=== PATIENT | female | born 1945 | race Caucasian/White ===

== ENCOUNTER → 2016-10-21 | Outpatient (CLI) | payer MEDICARE, MEDICAID ==
[~2016-10-21] MED LIST: AMITRIPTYLINE25 MG PO; ASPIRIN 81MG TA81 MG PO; BENICAR HCT 12.1 TAB PO; CLOPIDOGREL75 M2 PO; CRESTOR10 MG PO; DIOVAN160 MG PO; FERROUS SULFAT325 M2 PO; GABAPENTIN 600600 MG PO; INDOMETHACIN 2525 MG PO; LASIX20 MG PO; LEVAQUIN250 M1 PO; LEVAQUIN500 MG PO; LISINOPRIL5 MG PO; LORTAB 5/3251 TAB PO; PREDNISONE5 MG PO; PRILOSEC20 M1 PO; ULTRAM50 MG PO
--- NOTE | 2016-10-21 12:41 | RADIOLOGY REPORT PS360 ---
KNEE-3 VIEWS-RT HISTORY: RIGHT KNEE PAIN COMPARISON: None FINDINGS: There are moderate osteoarthritic changes of the medial compartment and mild osteoarthritic change of the patellofemoral joint. No fracture or dislocation. No lytic or blastic change or obvious knee joint effusion. IMPRESSION: Osteoarthritis
== END ==
LOC: RAD 12:13
DX: M25.561 Pain in right knee (principal)

== ENCOUNTER 2016-11-10 07:46 | Inpatient (IN) | payer MEDICARE, MEDICAID ==
[~2016-11-10] VITALS: Ht 167.6 cm; Wt 75.0 kg
[~2016-11-10 07:46] MED LIST changes: -FERROUS SULFAT325 M2 PO; -LEVAQUIN250 M1 PO; -PREDNISONE5 MG PO
[2016-11-10 07:53] VITALS: BP 148/80
--- NOTE | 2016-11-10 08:03 | Emergency Room Report ---
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 Clinical Suspician of Infection? Mental Status: Sepsis Risk: Have you (or family members/close friends) recently traveled outside the [place]? If Yes, where/when: Have you had exposure to infectious disease within the past month? TB? Other? Specify: Source patient, RN notes reviewed Exam Limitations no limitations Comment Pt comes to the ED with complaints of SOA and productive cough for the past couple of weeks. Green sputum and achy but no vomiting or diarrhea. ? fever but none at this time. she is not a smoker. Feels achy all over and worse if she tries to move Cardiac Chest Pain Chest pain indicative of cardiac No ALLERGIES Coded Allergies: amantadine (I-HIVES 06/15/16) baclofen (W-TDSVTP-SKSH/THROAT 06/15/16) carvedilol (COUGH 06/15/16) promethazine (I-HIVES 06/15/16) rosuvastatin (I-ITCHING 06/15/16) simvastatin (M-WNIZZJ-FJIF/THROAT 06/15/16) Home Medications Active Scripts Valsartan (Diovan 160MG) 160 MG PO DAILY #30 TAB Prov: 06/30/14 HYDROCODONE/ACETAMINOPHEN (Lortab 5-325 MG Tablet) 1 TAB PO Q6HP PRN PAIN #10 TAB Prov: 08/03/14 Reported Medications Gabapentin (Neurontin 300MG) 300 MG PO BID ASPIRIN (Aspirin) 81 MG PO DAILY Tramadol Hcl (Ultram 50MG) 50 MG PO DAILY AMITRIPTYLINE HCL (Amitriptyline HCl) 50 MG PO QHS Lisinopril 5 MG PO DAILY #30 CLOPIDOGREL BISULFATE (Clopidogrel) 75 MG PO DAILY #30 History Medical History General CAD? No Angina: No [place]: No Hypertension? Yes Hyperlipidemia? No CHF? No DVT? No PE? No COPD? No Asthma? Yes Anemia? No GERD? No Gastric ulcers? No GI Bleed? No Hernia? No Thyroid Problems? No Hypothyroidism? No CVA? Yes Seizures? Yes Diabetes? No Insulin Dependent: No Insulin Pump: No Home FSBS? No Renal Insuffiency? No End Stage Renal Disease? No UTI? No Stones? No BPH? No GB Disease: Yes Nephritic Syndrome? No Asplenia? No Hepatitis? No Sickle Cell Disease? No Arthritis? Yes Migraines? No Cataracts? No Glaucoma? No MRSA? No HIV? No TB? No Anxiety? No Cancer? No More? No Immunization Hx DT/Tetanus 1-4 YRS Flu [id number] Flu Season Pneumonia Received In Past Surgical Hx Previous Surgery?Y LOLITA,BSO BLADDER TACH CVA (2006) CYCTOCELE, ENTEROCELE KNEE SURGERY COLONOSCOPY GALLBLADDER [id number] BACK SURGERY Family History Family Hx Diabetes No CAD Yes Hypertension Yes Hyperlipidemia No Cancer Yes TB No Social History Alcohol Alcohol: No Review of Systems All Other Systems Reviewed and Negative Constitutional see HPI ENT see HPI. Respiratory see HPI Physical Exam Vital Signs Vital Signs Date Time Temp Pulse Resp B/P Pulse O2 O2 Flow FiO2 Ox Delivery Rate 11/10 0753 98.4 84 18 148/80 95 General Appearance no apparent distress, but looks a little pale and weak Ear, Nose, Throat hearing grossly normal, normal ENT inspection Respiratory Status No: respiratory distress. Lung Sounds bilateral: decreased breath sounds. 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 No Results/Orders Laboratory Tests 11/10/16 0810: Lactic Acid 0.9 11/10/16 0810: Sodium 141, Potassium 4.1, Chloride 109 H, Carbon Dioxide 26, BUN 11, Creatinine 1.1 H, Estimated Creat Clear 41 L, Estimated GFR (MDRD) 49 L, Glucose 112 H, Calcium 8.4 L, Total Bilirubin 0.4, AST 13 L, ALT 12, Alkaline Phosphatase 86, Total Protein 6.2 L, Albumin 2.9 L, Globulin 3.3 H, Albumin/ Globulin Ratio 0.9 L, WBC 3.3 L, RBC 3.78 L, Hgb 9.9 L, Hct 31.1 L, MCV 82.5, RDW 13.5, Plt Count 143, MPV 11.4 H, Gran % 38.6, Gran # 1.3 L, Lymphocytes % 43.0, Monocytes % 7.9, Eosinophils % 9.9, Basophils % 0.6, Lymphocytes # 1.4, Monocytes # 0.3, Eosinophils # 0.3, Basophils # 0.0, PUBS MCHC 31.7 L, MCH 26.2 L, Influenza Type A Ag NOT DETECTED, Influenza Type B Ag NOT DETECTED Current Medication Orders Sig/Son Start time Last Medication Dose Route Stop Time Status Admin Levofloxacin/Dextrose 150 ML ONCE ONE 11/10 0900 CKDr IV 11/10 1029 Sodium Chloride 1,000 ML .Q1H1M 11/10 0900 AC IV 11/10 1000 Sodium Chloride 10 ML PRN PRN 11/10 0900 AC IV 11/11 0846 Sodium Chloride 1,000 ML .Q6H40M 11/10 0900 AC 11/10 IV 11/10 2046 0849 Sodium Chloride 10 ML PRN PRN 11/10 0900 AC IV 11/11 0846 Sodium Chloride 1,000 ML .STK-MED ONE 11/10 0846 DC IV Sodium Chloride 10 ML PRN PRN 11/10 0800 AC IV 11/11 0758 Orders Procedure Date/time Status UPPER RESPIRATORY PANEL, PCR 11/10 0902 Active CULTURE, BLOOD 11/10 0815 Active CULTURE, BLOOD 11/10 0810 Active LACTIC ACID 11/10 0810 Complete CHEST(2 VIEWS-NOT PORTABLE) 11/10 0759 Active IV SALINE LOCK 11/10 0759 Active INFLUENZA A&B ANTIGENS 11/10 0759 Complete CBC WITH AUTO DIFF 11/10 0759 Complete CHEM 12 PROFILE 11/10 0759 Complete XRAY/CT/US XRAY/CT/US XRAY chest XR interpretation by reviewed by me Xray Results lll INFILTRATE Departure Departure Time of Disposition 902 Disposition Still a Patient Clinical Impression Primary Impression: LLL pneumonia Qualifiers: Pneumonia type: due to unspecified organism Qualified Code: J18.9 - Pneumonia, unspecified organism Secondary Impressions: Viral syndrome Condition STABLE Referrals Jhonny Solano MD Additional Instructions OBS to Dr. Solano....get Upper Respiratory panel and start on Levaquin and nebs. Discharge Counseling Counseled pt/family regarding diagnosis, test results, follow up needs ED Critical Care Critical Care No If Critical Care minutes are documented, the time involved in the performance of seperately reportable procedures was not counted toward critical care time documented. I directly delivered medical care to this critically ill and/or injured patient. Timely evaluation and treatment was necessary to address the significant organ system(s) dysfunction present in this patient. at 0906
--- NOTE | 2016-11-10 08:03 | Emergency Room Report ---
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 Clinical Suspician of Infection? Mental Status: Sepsis Risk: Have you (or family members/close friends) recently traveled outside the [place]? If Yes, where/when: Have you had exposure to infectious disease within the past month? TB? Other? Specify: Source patient, RN notes reviewed Exam Limitations no limitations Comment Pt comes to the ED with complaints of SOA and productive cough for the past couple of weeks. Green sputum and achy but no vomiting or diarrhea. ? fever but none at this time. she is not a smoker. Feels achy all over and worse if she tries to move Cardiac Chest Pain Chest pain indicative of cardiac No ALLERGIES Coded Allergies: amantadine (I-HIVES 06/15/16) baclofen (J-[id number]-AIIH/THROAT 06/15/16) carvedilol (COUGH 06/15/16) promethazine (I-HIVES 06/15/16) rosuvastatin (I-ITCHING 06/15/16) simvastatin (L-XTCHRJ-PSCG/THROAT 06/15/16) Home Medications Active Scripts Valsartan (Diovan 160MG) 160 MG PO DAILY #30 TAB Prov: 06/30/14 HYDROCODONE/ACETAMINOPHEN (Lortab 5-325 MG Tablet) 1 TAB PO Q6HP PRN PAIN #10 TAB Prov: 08/03/14 Reported Medications Gabapentin (Neurontin 300MG) 300 MG PO BID ASPIRIN (Aspirin) 81 MG PO DAILY Tramadol Hcl (Ultram 50MG) 50 MG PO DAILY AMITRIPTYLINE HCL (Amitriptyline HCl) 50 MG PO QHS Lisinopril 5 MG PO DAILY #30 CLOPIDOGREL BISULFATE (Clopidogrel) 75 MG PO DAILY #30 History Medical History General CAD? No Angina: No [place]: No Hypertension? Yes Hyperlipidemia? No CHF? No DVT? No PE? No COPD? No Asthma? Yes Anemia? No GERD? No Gastric ulcers? No GI Bleed? No Hernia? No Thyroid Problems? No Hypothyroidism? No CVA? Yes Seizures? Yes Diabetes? No Insulin Dependent: No Insulin Pump: No Home FSBS? No Renal Insuffiency? No End Stage Renal Disease? No UTI? No Stones? No BPH? No GB Disease: Yes Nephritic Syndrome? No Asplenia? No Hepatitis? No Sickle Cell Disease? No Arthritis? Yes Migraines? No Cataracts? No Glaucoma? No MRSA? No HIV? No TB? No Anxiety? No Cancer? No More? No Immunization Hx DT/Tetanus 1-4 YRS Flu [id number] Flu Season Pneumonia Received In Past Surgical Hx Previous Surgery?Y LOLITA,BSO BLADDER TACH CVA (2006) CYCTOCELE, ENTEROCELE KNEE SURGERY COLONOSCOPY GALLBLADDER [id number] BACK SURGERY Family History Family Hx Diabetes No CAD Yes Hypertension Yes Hyperlipidemia No Cancer Yes TB No Social History Alcohol Alcohol: No Review of Systems All Other Systems Reviewed and Negative Constitutional see HPI ENT see HPI. Respiratory see HPI Physical Exam Vital Signs Vital Signs Date Time Temp Pulse Resp B/P Pulse O2 O2 Flow FiO2 Ox Delivery Rate 11/10 0753 98.4 84 18 148/80 95 General Appearance no apparent distress, but looks a little pale and weak Ear, Nose, Throat hearing grossly normal, normal ENT inspection Respiratory Status No: respiratory distress. Lung Sounds bilateral: decreased breath sounds. 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 No Results/Orders Laboratory Tests 11/10/16 0810: Lactic Acid 0.9 11/10/16 0810: Sodium 141, Potassium 4.1, Chloride 109 H, Carbon Dioxide 26, BUN 11, Creatinine 1.1 H, Estimated Creat Clear 41 L, Estimated GFR (MDRD) 49 L, Glucose 112 H, Calcium 8.4 L, Total Bilirubin 0.4, AST 13 L, ALT 12, Alkaline Phosphatase 86, Total Protein 6.2 L, Albumin 2.9 L, Globulin 3.3 H, Albumin/ Globulin Ratio 0.9 L, WBC 3.3 L, RBC 3.78 L, Hgb 9.9 L, Hct 31.1 L, MCV 82.5, RDW 13.5, Plt Count 143, MPV 11.4 H, Gran % 38.6, Gran # 1.3 L, Lymphocytes % 43.0, Monocytes % 7.9, Eosinophils % 9.9, Basophils % 0.6, Lymphocytes # 1.4, Monocytes # 0.3, Eosinophils # 0.3, Basophils # 0.0, PUBS MCHC 31.7 L, MCH 26.2 L, Influenza Type A Ag NOT DETECTED, Influenza Type B Ag NOT DETECTED Current Medication Orders Sig/Son Start time Last Medication Dose Route Stop Time Status Admin Levofloxacin/Dextrose 150 ML ONCE ONE 11/10 0900 CKDr IV 11/10 1029 Sodium Chloride 1,000 ML .Q1H1M 11/10 0900 AC IV 11/10 1000 Sodium Chloride 10 ML PRN PRN 11/10 0900 AC IV 11/11 0846 Sodium Chloride 1,000 ML .Q6H40M 11/10 0900 AC 11/10 IV 11/10 2046 0849 Sodium Chloride 10 ML PRN PRN 11/10 0900 AC IV 11/11 0846 Sodium Chloride 1,000 ML .STK-MED ONE 11/10 0846 DC IV Sodium Chloride 10 ML PRN PRN 11/10 0800 AC IV 11/11 0758 Orders Procedure Date/time Status UPPER RESPIRATORY PANEL, PCR 11/10 0902 Active CULTURE, BLOOD 11/10 0815 Active CULTURE, BLOOD 11/10 0810 Active LACTIC ACID 11/10 0810 Complete CHEST(2 VIEWS-NOT PORTABLE) 11/10 0759 Active IV SALINE LOCK 11/10 0759 Active INFLUENZA A&B ANTIGENS 11/10 0759 Complete CBC WITH AUTO DIFF 11/10 0759 Complete CHEM 12 PROFILE 11/10 0759 Complete XRAY/CT/US XRAY/CT/US XRAY chest XR interpretation by reviewed by me Xray Results lll INFILTRATE Departure Departure Time of Disposition 902 Disposition Still a Patient Clinical Impression Primary Impression: LLL pneumonia Qualifiers: Pneumonia type: due to unspecified organism Qualified Code: J18.9 - Pneumonia, unspecified organism Secondary Impressions: Viral syndrome Condition STABLE Referrals Jhonny Solano MD Additional Instructions OBS to Dr. Solano....get Upper Respiratory panel and start on Levaquin and nebs. Discharge Counseling Counseled pt/family regarding diagnosis, test results, follow up needs ED Critical Care Critical Care No If Critical Care minutes are documented, the time involved in the performance of seperately reportable procedures was not counted toward critical care time documented. I directly delivered medical care to this critically ill and/or injured patient. Timely evaluation and treatment was necessary to address the significant organ system(s) dysfunction present in this patient. at 0906
[2016-11-10 08:35] LABS: HEMOGLOBIN 9.9 g/dL (12.2-16.2); LYMPH # 1.4 K/mm3 (0.7-4.5)
[2016-11-10 09:37] LABS: CORONAVIRUS 229E NOT DETECTED (NOT DETECTE); CORONAVIRUS HKU 1 NOT DETECTED (NOT DETECTE); CORONAVIRUS NL63 NOT DETECTED (NOT DETECTE); CORONAVIRUS OC43 NOT DETECTED (NOT DETECTE); RHINOVIRUS/ENTEROVIRUS NOT DETECTED (NOT DETECTE)
--- NOTE | 2016-11-10 10:49 | RADIOLOGY REPORT PS360 ---
CHEST(2 VIEWS-NOT PORTABLE) HISTORY: Shortness of air SOA ORDERING PHYSICIAN: Alyssa Nelson MD PATIENT AGE: 71 years COMPARISON: 05/17/2015 FINDINGS: Borderline cardiomegaly without failure. Hiatal hernia. Calcified node in the right paratracheal region. Mild atelectatic change left lung base. No lobar consolidation or collapse.. The lungs are clear without infiltrates, suspicious nodules, or pleural effusions. No acute bony abnormalities. IMPRESSION: Hiatal hernia with mild cardiomegaly and minimal left basilar atelectasis
[2016-11-10 11:27] VITALS: BP 121/80
[2016-11-10 12:05] VITALS: BP 121/92
--- NOTE | 2016-11-10 16:39 | HISTORY AND PHYSICAL REPORT ---
History and Physical ([facility]) Date of admission: 11/10/16 Chief complaint: Weakness, cough History: History of Present Illness: Ms. Cordova is a 71yo patient of Jodi Hernandes who presented to the ER after 4 weeks of a cough with productive green sputum. She has been getting progressively more SOA and has been achy with no vomiting or diarrhea. She thinks she has been running a fever. She was evaluated in the ER and found to have a pneumonia. She was admitted for further evaluation and treatment. Past Medical History: Medical History: CAD? No Angina: No [place]: No Hypertension? Yes Hyperlipidemia? No CHF? No DVT? No PE? No COPD? No Asthma? Yes Anemia? No GERD? No Gastric ulcers? No GI Bleed? No Hernia? No Thyroid Problems? No Hypothyroidism? No CVA? Yes (x4) Seizures? Yes Diabetes? No Insulin Dependent: No Insulin Pump: No Home FSBS? No Renal Insuffiency? No UTI? No Stones? No BPH? No GB Disease: Yes Nephritic Syndrome? No Asplenia? No Hepatitis? No Sickle Cell Disease? No Arthritis? Yes Migraines? No Cataracts? No Glaucoma? No MRSA? No HIV? No TB? No Anxiety? No Cancer? No More? No Surgical history: Previous Surgery?Y LOLITA,BSO BLADDER TACH CVA (2006) CYCTOCELE, ENTEROCELE KNEE SURGERY COLONOSCOPY GALLBLADDER [id number] BACK SURGERY Medications: Active Scripts Valsartan (Diovan 160MG) 160 MG PO DAILY #30 TAB Prov: 06/30/14 HYDROCODONE/ACETAMINOPHEN (Lortab 5-325 MG Tablet) 1 TAB PO Q6HP PRN PAIN #10 TAB Prov: 08/03/14 Reported Medications Gabapentin (Neurontin 300MG) 300 MG PO BID ASPIRIN (Aspirin) 81 MG PO DAILY Tramadol Hcl (Ultram 50MG) 50 MG PO DAILY AMITRIPTYLINE HCL (Amitriptyline HCl) 50 MG PO QHS Lisinopril 5 MG PO DAILY #30 CLOPIDOGREL BISULFATE (Clopidogrel) 75 MG PO DAILY #30 Allergies: Coded Allergies: amantadine (I-HIVES 06/15/16) baclofen (W-HHEJWN-ZRKK/THROAT 06/15/16) carvedilol (COUGH 06/15/16) promethazine (I-HIVES 06/15/16) rosuvastatin (I-ITCHING 06/15/16) simvastatin (W-DKZAFZ-RXYE/THROAT 06/15/16) Family History: Family history: Postive for: CAD, HTN, cancer (colon). Social History: Smoking Hx Tobacco: No Smoker: Never Smoker Type: N/A Packs/day: N/A Are you exposed to second hand No Alcohol: Alcohol: No Hx of Drug Use: Drug Use? No Review of Systems: Constitutional Positive for: chills, fatigue, lethargy, malaise, weak. ENT No: nasal congestion, sore throat. Cardiovascular Positive for: chest pain. No: edema, palpitations. Respiratory Positive for: shortness of air, productive cough (sputum), wheezing. GI No: abdominal pain, diarrhea, nausea, vomitting. (female) No: frequency, hematuria. Neurological Positive for: dizziness, headache, weakness. No: syncope. Musculoskeletal Positive for: myalgias. No: extremity pain, joint pain. Physical Exam: Vital signs: 1ST Vital Signs Result Date Time Pulse Ox 95 11/10 0753 B/P 148/80 11/10 0753 Temp 98.4 11/10 0753 Pulse 84 11/10 0753 Resp 18 11/10 0753 O2 Delivery ROOM AIR 11/10 1127 O2 Flow Rate 2 11/10 1200 Exam: General appearance: alert, awake, Does not appear to feel well Eyes: EOM's w/normal ROM, PERRLA ENT: mucous membranes moist, nose normal, pharynx normal, tympanic membranes normal Neck: non-tender, full range of motion, supple Cardiovascular: regular rate & rhythm Respiratory: rales left base ABD: non-distended, normal bowel sounds, no rebound, soft, no tenderness, no guarding Extremities: trace pretibial edema bilaterally Musculoskeletal: equal muscle strength, motor intact, sensation intact Skin: pale Neuro: normal mood/affect, oriented, speech clear Lab data: Labs: Laboratory Tests 11/10/16 0930: Chlamy pneum (TEM-PCR) NOT DETECTED, Adenovirus (PCR) NOT DETECTED, B. pertussis DNA (PCR) NOT DETECTED, Coronavirus OC43 (PCR) NOT DETECTED, Coronavirus HKU1 ( PCR) NOT DETECTED, Coronavirus 229E (PCR) NOT DETECTED, Coronavirus NL63 (PCR) NOT DETECTED, Human Metapneumovirus NOT DETECTED, Influenza A (H1) PCR NOT DETECTED, Influ A (H1N1/09) PCR NOT DETECTED, Influenza A (H3) PCR NOT DETECTED, Influenza Type A (PCR) NOT DETECTED, Influenza Type B (PCR) NOT DETECTED, M. pneumoniae (PCR) NOT DETECTED, Parainfluenza 1 (PCR) NOT DETECTED, Parainfluenza 2 (PCR) NOT DETECTED, Parainfluenza 3 (PCR) NOT DETECTED, Parainfluenza 4 (PCR) NOT DETECTED, RSV (PCR) NOT DETECTED, Entero/Rhino (PCR) NOT DETECTED 11/10/16 0810: Lactic Acid 0.9, Mycoplasma pneumon IgM NON-REACTIVE 11/10/16 0810: Sodium 141, Potassium 4.1, Chloride 109 H, Carbon Dioxide 26, BUN 11, Creatinine 1.1 H, Estimated Creat Clear 41 L, Estimated GFR (MDRD) 49 L, Glucose 112 H, Calcium 8.4 L, Total Bilirubin 0.4, AST 13 L, ALT 12, Alkaline Phosphatase 86, Total Protein 6.2 L, Albumin 2.9 L, Globulin 3.3 H, Albumin/ Globulin Ratio 0.9 L, WBC 3.3 L, RBC 3.78 L, Hgb 9.9 L, Hct 31.1 L, MCV 82.5, RDW 13.5, Plt Count 143, MPV 11.4 H, Gran % 38.6, Gran # 1.3 L, Lymphocytes % 43.0, Monocytes % 7.9, Eosinophils % 9.9, Basophils % 0.6, Lymphocytes # 1.4, Monocytes # 0.3, Eosinophils # 0.3, Basophils # 0.0, PUBS MCHC 31.7 L, MCH 26.2 L, Influenza Type A Ag NOT DETECTED, Influenza Type B Ag NOT DETECTED Microbiology 11/10 08 BLOOD: Anaerobic Blood Culture - RECD 11/10 08 BLOOD: Aerobic Blood Culture - RECD 11/10 08 BLOOD: Anaerobic Blood Culture - RECD 11/10 809 BLOOD: Aerobic Blood Culture - RECD 11/10 UNK BLOOD: Anaerobic Blood Culture - CAN Cancelled: @DUPLICATE 11/10 UNK BLOOD: Aerobic Blood Culture - CAN Cancelled: @DUPLICATE 11/10 UNK BLOOD: Anaerobic Blood Culture - CAN Cancelled: @DUPLICATE 11/10 UNK BLOOD: Aerobic Blood Culture - CAN Cancelled: @DUPLICATE Radiology results: Results: CXR - Hiatal hernia with mild cardiomegaly and minimal left basilar atelectasis Diagnosis(es): 1. LLL pneumonia Status: Acute 2. Hypertension Status: Chronic 3. Anemia Plan: Pt has been started on levaquin and most of her home medications. Her respiratory panel was negative. Will await sputum culture. (Lennie Sheikh) Diagnosis(es): 1. LLL pneumonia Status: Acute 2. Hypertension Status: Chronic 3. Anemia 4. History of cerebrovascular disease 5. Chronic low back pain Plan: Pt seen and examined. "I just don't feel good". No specific complaints except weakness and BENNETT. No chest pain. Cough is nonproductive. Has not been eating or drinking well for several days due to not having an appetite. Not sure why she takes Plavix. States Jodi Hernandes started it last week because "she thought I was having a stroke". Shegives a hx of "mini-strokes". Reviewed labs and xray. CBC appears to have a viral pattern but PCR panel is negative. CXR interpreted by radiologist as LLL atelectasis. Will plan to repeat CXR after hydration. Continue IV Levaquin pending sputum culture (Jhonny Solano MD) at 1642 at 1837
[2016-11-10 16:48] VITALS: BP 121/86
[2016-11-10 20:03] VITALS: BP 147/84
[2016-11-11] VITALS (7 sets, daily range): BP systolic 141–160; BP diastolic 67–88
[2016-11-11 07:59] LABS: LYMPH # 0.4 K/mm3 (0.7-4.5); LYMPH % 22.4 % (10-50.0)
[2016-11-11 08:00] LABS: HEMOGLOBIN 8.8 g/dL (12.2-16.2)
--- NOTE | 2016-11-11 08:43 | ACUTE CARE PROGRESS NOTE (QUA) ---
Progress Notes Subjective Date 11/11/16 Time 0841 Note Rested fairly well. Feels a little better this AM. Still with cough. States Duonebs make her "climb the ha". Tells me she had problems with anemia when she was younger but not aware of any recent problems. Appetite a little better. Objective Findings Laboratory Tests 11/11/16 0550: Sodium 143, Potassium 4.0, Chloride 112 H, Carbon Dioxide 22, BUN 11, Creatinine 1.2 H, Estimated Creat Clear 50, Estimated GFR (MDRD) 44 L, Glucose 204 H, Calcium 8.4 L, Ferritin 12, WBC 1.6 *L, RBC 3.43 L, Hgb 8.8 L, Hct 27.0 L, MCV 78.8 L, RDW 14.5, Plt Count 77 L, Gran % 75.6, Gran # 1.2 L, Total Counted 100, Lymphocytes % 22.4, Monocytes % 2.0, Neutrophils 87 H, Lymphocytes (Manual) 11, Lymphocytes # 0.4 L, Monocytes (Manual) 1 L, Monocytes # 0 L, Eosinophils # (Manual) 1, Platelet Estimate NORMAL, PUBS MCHC 33.0, MCH 25.9 L Last VS-Temp:97.9 B/P:146/67 Pulse:90 Resp:22 SaO2:95 ROOM AIR Last weight lbs:165 oz:6 K.013 Method:Bed Scales Exam General appearance: alert, no acute distress Eyes: anicteric ENT: mucous membranes moist Cardiovascular: regular rate & rhythm Respiratory: coarse BS, no rales or wheezes ABD: non-distended, soft, no tenderness Extremities: no peripheral edema Skin: pale Assessment/Plan Problem List 1. LLL pneumonia Status: Acute 2. Pancytopenia 3. Hypertension Status: Chronic 4. History of cerebrovascular disease 5. Chronic low back pain Plan: Feels a little better. Now showing a pancytopenia on her CBC. Could be related to viral syndrome. Anemia w/u pending. Will check peripheral smear. Continue IV antibiotics pending culture. This inpt stay is expected to cross 2 MNs from start of care Yes at 1127
[2016-11-11 10:17] LABS: NEUTROPHILS 87 % (42-76)
[2016-11-12] VITALS (7 sets, daily range): BP systolic 143–176; BP diastolic 75–94
[2016-11-12 08:34] LABS: HEMOGLOBIN 8.4 g/dL (12.2-16.2)
[2016-11-12 08:36] LABS: LYMPH % 6.9 % (10-50.0)
[2016-11-12 08:37] LABS: LYMPH # 0.6 K/mm3 (0.7-4.5)
--- NOTE | 2016-11-12 08:51 | ACUTE CARE PROGRESS NOTE (QUA) ---
Progress Notes Subjective Date 11/12/16 Time 0842 Note Sleepy this AM. States she did not sleep well last night. Still with cough - dry. No abdominal pain. Had "good BM" yesterday. Objective Findings Laboratory Tests 11/12/16 0815: WBC 8.5, RBC 3.33 L, Hgb 8.4 L, Hct 26.3 L, MCV 79.1 L, RDW 15.5, Plt Count 119 L, Gran % 91.3 H, Gran # 7.8, Lymphocytes % 6.9 L, Monocytes % 1.8, Lymphocytes # 0.6 L, Monocytes # 0.2, PUBS MCHC 31.9, MCH 25.2 L Last VS-Temp:97.9 B/P:143/75 Pulse:90 Resp:20 SaO2:95 ROOM AIR Last weight lbs:165 oz:6 K.013 Method:Bed Scales Exam General appearance: drowsy but oriented ENT: mucous membranes moist Cardiovascular: regular rate & rhythm Respiratory: clear to auscultation ABD: non-distended, soft, mild epigastric tenderness Skin: dry, warm, pale Reviewed: medications, vital signs, lab results, nursing notes Assessment/Plan Problem List 1. LLL pneumonia Status: Acute 2. Hypertension Status: Chronic 3. History of cerebrovascular disease 4. Chronic low back pain 5. Microcytic anemia Patient condition Stable Plan: WBC and platelet counts are normal today. Showing microcytic anemia. Iron studies pending. Stool for occult blood pending. Repeat CXR from yesterday pending. Will conitnue per orders. Encourage increased activity. This inpt stay is expected to cross 2 MNs from start of care Yes at 0850
[2016-11-12 10:52] LABS: NEUTROPHILS 93 % (42-76)
[2016-11-13] VITALS (8 sets, daily range): BP systolic 114–169; BP diastolic 70–104
[2016-11-13 06:42] LABS: HEMOGLOBIN 9.2 g/dL (12.2-16.2); LYMPH # 0.6 K/mm3 (0.7-4.5); LYMPH % 6.1 % (10-50.0)
--- NOTE | 2016-11-13 08:32 | ACUTE CARE PROGRESS NOTE (QUA) ---
Progress Notes Subjective Date 11/13/16 Time 0826 Note Rested better last night. Cough has improved. Sats are normal on RA. Objective Findings Laboratory Tests 11/13/16 0635: Hemoglobin A1c 6.1 11/13/16 0635: Sodium 146 H, Potassium 4.1, Chloride 114 H, Carbon Dioxide 25, BUN 20 H, Creatinine 0.9, Estimated Creat Clear 67, Estimated GFR (MDRD) 62, Glucose 154 H, Calcium 8.4 L, WBC 9.2, RBC 3.64 L, Hgb 9.2 L, Hct 30.0 L, MCV 82.6, RDW 14.2, Plt Count 152, MPV 12.6 H, Gran % 91.2 H, Gran # 8.4 H, Lymphocytes % 6.1 L, Monocytes % 2.3, Eosinophils % 0.4, Basophils % 0.0 L, Lymphocytes # 0.6 L, Monocytes # 0.2, Eosinophils # 0.0, Basophils # 0.0, PUBS MCHC 30.5 L, MCH 25.2 L Last VS-Temp:98.6 B/P:140/87 Pulse:88 Resp:20 SaO2:96 ROOM AIR Last weight lbs:165 oz:6 K.014 Method:Bed Scales Exam General appearance: alert, awake, no acute distress Cardiovascular: regular rate & rhythm Respiratory: few coarse rales ABD: non-distended, normal bowel sounds, soft, no tenderness Extremities: no peripheral edema Skin: pale Reviewed: medications, vital signs, lab results, nursing notes Assessment/Plan Problem List 1. LLL pneumonia Status: Acute 2. Hypertension Status: Chronic 3. History of cerebrovascular disease 4. Chronic low back pain 5. Microcytic anemia Plan: She looks and feels better. H&H improved. CXR from 2 days ago still pending. Awaiting anemia studies. This inpt stay is expected to cross 2 MNs from start of care Yes at 0831
--- NOTE | 2016-11-13 09:12 | RADIOLOGY REPORT PS360 ---
CHEST(2 VIEWS-NOT PORTABLE) ORDERING PHYSICIAN : Jhonny Solano MD PATIENT AGE: 71 years GENDER: Female INDICATION: F/u pneumonia TECHNIQUE: PA and lateral chest 11/10/2016 COMPARISON: chest 11/10/2016 & 11/10/14 CXR,. FINDINGS Prominent hiatal hernia is again seen. Is larger today than on previous 11/10/14 CXR, and 11/10/2016 Today hiatal hernia measures up to 8 cm diameter at the lower chest behind the heart on today's PA image. Significant larger on the lateral view is well with adjacent atelectasis most pronounced at the right lower lobe. . Mild basilar atelectasis suggested,. Linear atelectasis most notable left base on frontal projection... Difficult to totally exclude early infiltrate particularly towards towards medial right lung base . Mild cardiomegaly with CT ratio . Appears to be slight additional vascular prominence versus 2014. Question mild vascular congestion. Small pleural effusion on right & possibly left Blunting posterior sulcus now evident... Most evident towards right lung base. Large calcified azygous node stable 2.5 cm length. Chest wall and T-spine stable. ----IMPRESSION: Hiatal hernia more prominent today measuring 8 cm & bulging into medial right lung base. Bibasilar atelectasis. Difficult to exclude subtle early infiltrate medial right base.. Suggestion small pleural effusion most likely on right. Blunting, & meniscus at posterior sulcus Borderline/Mild Cardiomegaly. Question mild vascular congestion versus old studies
[2016-11-14 03:41] VITALS: BP 126/83
[2016-11-14 07:36] VITALS: BP 154/78
--- NOTE | 2016-11-14 07:58 | ACUTE CARE PROGRESS NOTE (QUA) ---
Progress Notes Subjective Date 11/14/16 Time 0752 Note Feels so much beter; ambulating without problems; senies CP and SOB; eating well ; loves breakfast; voiding QS and bowels are moving well; ready to go home. Objective Findings Vital Signs Date Time Temp Pulse Resp B/P Pulse O2 O2 Flow FiO2 Ox Delivery Rate 11/14 0736 98.7 88 18 154/78 98 ROOM AIR 11/14 0547 1 11/14 0547 95 ROOM AIR 11/14 0341 97.2 68 18 126/83 93 ROOM AIR 11/13 2342 97.3 67 20 147/85 95 ROOM AIR 11/13 202 98.4 93 16 160/90 96 11/13 1953 160/90 11/13 1933 98.4 93 16 154/104 96 ROOM AIR 11/13 1926 97 ROOM AIR 11/13 1820 97 ROOM AIR 11/13 1622 97.5 93 20 169/103 98 ROOM AIR 11/13 1143 98.6 95 20 114/70 97 ROOM AIR 11/13 0832 98.6 88 20 140/87 96 Current Medications Prednisone 20 MG BID PO Guaifenesin/Dextromethorphan 0 .STK-MED ONE .ROUTE (DC) Levofloxacin/Dextrose 150 ML Q48H IV Levalbuterol HCl 0.63 MG TIDRT INH Amitriptyline HCl 50 MG QHS PO Methylprednisolone Sodium Succinate 60 MG Q8 IV (DC) Tramadol HCl 50 MG Q6HP PRN PO Sodium Chloride 10 ML PRN PRN IV Acetaminophen 650 MG Q4HP PRN PO Guaifenesin/Dextromethorphan 10 ML Q4HP PRN PO Influenza Virus Vaccine Quadrival 0.5 ML PRN PRN IM Nicotine 21 MG DAILYP PRN TD Sodium Chloride 1,000 ML .Q25H IV Aspirin 81 MG DAILY PO Clopidogrel Bisulfate 75 MG DAILY PO Irbesartan 150 MG DAILY PO Lisinopril 5 MG DAILY PO Gabapentin 300 MG BID PO 11/13 1500 11/13 2300 11/14 0700 Intake Total 240 580 553 Output Total Balance 240 580 553 Intake, IV 340 313 Intake, Oral 240 240 240 Patient 165 lb Weight Last VS-Temp:98.7 B/P:154/78 Pulse:88 Resp:18 SaO2:98 ROOM AIR Last weight lbs:165 oz:7 K.041 Method:Bed Scales Exam General appearance: alert, active, no acute distress, well-developed, well- nourished, sitting on bedside and has completed breakfast Cardiovascular: regular rate & rhythm Respiratory: clear to auscultation (bilat anterior and posterior) Assessment/Plan Problem List 1. LLL pneumonia Status: Acute 2. Hypertension Status: Chronic 3. History of cerebrovascular disease 4. Chronic low back pain 5. Microcytic anemia Patient condition Improved Plan: discharge to home today, will follow anemia as an outpatient This inpt stay is expected to cross 2 MNs from start of care No (Awilda Gambino APRN) Subjective Date 11/14/16 Time 0858 Note Pt seen and examined. SHe looks and feels much better. Concur with plan for discharge. Will need f/u on her anemia with consideration for c-scope. Assessment/Plan Problem List 1. LLL pneumonia Status: Acute 2. Hypertension Status: Chronic 3. History of cerebrovascular disease 4. Chronic low back pain 5. Microcytic anemia (Jhonny Solano MD) at 0826 at 0900
[2016-11-14 08:42] LABS: HBsAg Screen Negative (Negative); Hep A Ab, IgM Negative (Negative); Hep B Core Ab, IgM Negative (Negative); Hep C Virus Ab <0.1 (0.0-0.9)
[2016-11-14 08:51] VITALS: BP 154/78
[2016-11-14] MEDS ORDERED: LEVAQUIN250 M1 PO (08:54)
[2016-11-14] MEDS ORDERED: PREDNISONE5 MG PO (08:54)
[2016-11-14] MEDS ORDERED: FERROUS SULFAT325 M2 PO (08:55)
[2016-11-14 10:15] VITALS: BP 154/78
[2016-11-14 18:39] LABS: Antinuclear Antibodies, IFA Negative (.)
[2016-11-15 04:36] LABS: Folate (Folic Acid) 18.2 ng/mL (>3.0)
[2016-11-15 16:34] LABS: Epstein-Barr DNA Quant, PCR Negative (Negative)
--- NOTE | 2016-11-16 13:10 | DISCHARGE SUMMARY STANDARD ---
Discharge Summary (FCA2) Date of admission: 11/10/16 Date of discharge: 11/14/16 Problem List: 1. LLL pneumonia 2. Hypertension 3. History of cerebrovascular disease 4. Chronic low back pain 5. Microcytic anemia History of present illness: Ms. Cordova is a 71yo patient of Jodi Hernandes who presented to the ER after 4 weeks of a cough with productive green sputum. She had been getting progressively more SOA and had been achy with no vomiting or diarrhea. She thought she had been running a fever. She was evaluated in the ER and found to have a pneumonia. She was admitted for further evaluation and treatment. Exam on admission: General appearance: alert, awake, Does not appear to feel well Eyes: EOM's w/normal ROM, PERRLA ENT: mucous membranes moist, nose normal, pharynx normal, tympanic membranes normal Neck: non-tender, full range of motion, supple Cardiovascular: regular rate & rhythm Respiratory: rales left base ABD: non-distended, normal bowel sounds, no rebound, soft, no tenderness, no guarding Extremities: trace pretibial edema bilaterally Musculoskeletal: equal muscle strength, motor intact, sensation intact Skin: pale Neuro: normal mood/affect, oriented, speech clear Hospital Course: She had a respiratory panel done which was negative. She was started on Levaquin and most of her home medications. By 11/11/16, she was showed a pancytopenia on her complete blood count. Dr. Solano felt this could be related to a viral syndrome. Her anemia workup was still pending. Her second chest x-ray showed a hiatal hernia with bibasilar atelectasis. It was difficult to exclude a subtle early infiltrate in the medial RIGHT base. The patient did improve throughout her stay. Her iron was found to be low. Dr. Solano felt she would need a further workup for her anemia upon discharge. By 11/14/16, she was feeling much better and was anxious to go home. She was stable to be discharged home on iron, prednisone, and Levaquin. She will follow-up with her primary care physician. Discharge medications: Stop taking the following medications: Valsartan (Diovan 160MG) 160 MG TABLET ORAL DAILY Qty = 30 Continue taking these medications: Gabapentin (Gabapentin 600MG) 600 MG TABLET 300 MILLIGRAM ORAL TWICE A DAY AMITRIPTYLINE HCL (Amitriptyline HCl) 25 MG TABLET 50 MILLIGRAM ORAL AT BEDTIME NIGHTLY Tramadol Hcl (Ultram 50MG) 50 MG TABLET 50 MILLIGRAM ORAL DAILY ASPIRIN (Aspirin) 81 MG TAB.CHEW 81 MILLIGRAM ORAL DAILY Lisinopril (Lisinopril) 5 MG TABLET 5 MILLIGRAM ORAL DAILY Qty = 30 CLOPIDOGREL BISULFATE (Clopidogrel) 75 MG TABLET 75 MILLIGRAM ORAL DAILY Qty = 30 Start taking the following new medications: Levofloxacin (Levaquin) 250 MG TABLET 250 MILLIGRAM ORAL DAILY Qty = 5 No Refills Prednisone (Prednisone) 5 MG TABLET 5 MILLIGRAM ORAL DAILY Qty = 10 No Refills Ferrous Sulfate (Ferrous Sulfate 325MG) 325 MG TABLET 325 MILLIGRAM ORAL DAILY Qty = 30 Refills = 2 Disposition: F/U with: Jhonny Solano MD Follow up: 7 DAYS Activity: Cont Current activity Diet: No Added Salt Discharge to: HOME Agency needed? N (Lennie Sheikh) Problem List: 1. LLL pneumonia 2. Hypertension 3. History of cerebrovascular disease 4. Chronic low back pain 5. Microcytic anemia Disposition: Concur with above. She has elected to follow up with me at [facility]. (Jhonny Solano MD) at 1310
== END 2016-11-14 10:15 | disposition home or self-care (01) | DRG 195 ==
LOC: ER 07:46 → 2ND 09:39 → ER 09:39 → 2ND 11:16
PROVIDERS: Family Medicine; General Practice
DX: J18.9 Pneumonia, unspecified organism (principal); I10 Essential (primary) hypertension; Z86.73 Personal history of transient ischemic attack (TIA), and cerebral infarction without residual deficits; M54.5 Low back pain; D50.9 Iron deficiency anemia, unspecified

== ENCOUNTER 2017-03-06 09:29 | Day surgery (SDC) | payer MEDICARE, MEDICAID ==
[~2017-03-06 09:29] MED LIST changes: +FERROUS SULFAT325 M2 PO; +LEVAQUIN250 M1 PO; +PREDNISONE5 MG PO
--- NOTE | 2017-03-06 10:39 | Operative Note ---
Endoscopy Report Date: 03/06/17 Preoperative diagnosis: Mucous in stool Procedure Type of procedure: Total colonoscopy to terminal ileum with polypectomy and random biopsies Indications: 72-year-old white female from [place]. Patient states that "I have drainage from my bowels". She describes symptoms consistent with mucousy discharge and drainage without bleeding. She previously had colonoscopy by Dr. Louis in 2013 which revealed some diverticulosis. Consent was obtained and patient was taken to same-day surgery endoscopy procedure room. She was positioned in a lateral decubitus position. Adequate intravenous sedation was achieved. Variable stiffness Olympus colonoscope was inserted via the anus. It was advanced to the cecum with some minor difficulty due to floppiness of the colon. Ileocecal valve and appendiceal orifice were clearly identified. Colonoscope was advanced briefly into the ileocecal valve which was grossly normal. There was a subtle diminutive polyp in the cecum removed in a piecemeal fashion using cold biopsy forceps. As the colonoscope was withdrawn random colon biopsies were obtained. Within the rectum retroflexion was performed which revealed some nonpathologic appearing internal hemorrhoids. Findings 1. Diverticulosis 2. Polyp Follow-Up Follow-Up: Follow-up on the results of the polyp and random colon biopsies. Overall no obvious colonoscopic evidence to explain her mucousy bowel movements. May be functional or dietary. at 1038
[2017-03-06 12:09] VITALS: BP 147/79
== END 2017-03-06 11:24 | disposition home or self-care (01) ==
LOC: SDC 09:29
PROVIDERS: Surgery
PROC: 0DBH8ZX Excision of Cecum, Via Natural or Artificial Opening Endoscopic, Diagnostic (ICD-10-PCS; 2017-03-06)
PROC: 0DBE8ZX Excision of Large Intestine, Via Natural or Artificial Opening Endoscopic, Diagnostic (ICD-10-PCS; principal; 2017-03-06 10:30)
DX: R15.1 Fecal smearing (principal); K57.30 Diverticulosis of large intestine without perforation or abscess without bleeding; D12.0 Benign neoplasm of cecum

== ENCOUNTER 2017-08-08 16:26 | Emergency (ER) | payer MEDICARE, MEDICAID ==
[~2017-08-08] VITALS: Ht 167.6 cm; Wt 73.5 kg
[~2017-08-08 16:26] MED LIST changes: +AMITRIPTYLINE 550 MG PO; +AVAPRO75 MG PO; +BYSTOLIC5 MG PO; +CEFUROXIME AXE500 MG PO; +COREG 6.25MG6.25 MG PO; +LASIX 20MG. TAB20 MG PO; +LEVOTHYROXIN0.025 M3 PO; +OMEPRAZOLE40 MG PO; +PREDNISONE 20MG20 MG PO
--- NOTE | 2017-08-08 16:37 | Emergency Room Report ---
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 N Clinical Suspician of Infection? N Mental Status: 1 - Regular (Normal Baseline) Sepsis Risk:Low Sepsis Risk Have you (or family members/close friends) recently traveled outside the [place]? N If Yes, where/when: Have you had exposure to infectious disease within the past month? N TB? Other? Specify: Dull substernal pain since last night, not exertional, worse when supine, reports hx CHF with a little edema but no kristi calf pain; no BENNETT, no palpitations, hasn't taken her aspirin for two days as ran out; does not take diuretics regularly. Pain constant and dull. No belching. Had Takasubo cardiomyopathy diagnosed on [facility] 04/19/17 Dr. Clark [facility]; Echo 06/07/17 diastolic dysfunction grade 1; EF 45 per cent. ALLERGIES Coded Allergies: amantadine (I-HIVES 06/15/16) baclofen (Q-[id number]-YMNY/THROAT 06/15/16) carvedilol (COUGH 06/15/16) promethazine (I-HIVES CAN TAKE SHOT NOT TABLET 03/02/17) rosuvastatin (I-ITCHING 06/15/16) simvastatin (M-ITMPOY-UIVK/THROAT 06/15/16) Home Medications Active Scripts Prednisone (Prednisone 20MG) 20 MG PO BID #10 TAB Prov: 04/23/17 Ferrous Sulfate (Ferrous Sulfate 325MG) 325 MG PO DAILY #30 TAB Ref 2 Prov: 11/14/16 Furosemide (Lasix 20MG) 20 MG PO DAILY #30 TAB Prov: 04/20/17 LEVOTHYROXINE SOD (Levothyroxine 0.025MG) 0.025 MG PO DAILY #30 TAB Ref 2 Prov: 04/20/17 Cefuroxime Axetil (Cefuroxime) 500 MG PO BID #10 TAB Prov: 04/20/17 IRBESARTAN (Irbesartan) 75 MG PO BID #60 TAB Ref 2 Prov: 04/20/17 Carvedilol (Coreg 6.25MG) 6.25 MG PO BID #60 TAB Ref 2 Prov: 04/20/17 Reported Medications Gabapentin (Gabapentin 600MG) 300 MG PO BID Tramadol Hcl (Ultram 50MG) 50 MG PO BID PRN PAIN Amitriptyline Hcl (Amitriptyline) 50 MG PO QHS #90 History Medical History General CAD? No Angina: No MN: No Hypertension? Yes Hyperlipidemia? No CHF? No DVT? No PE? No COPD? No Asthma? Yes Anemia? No GERD? No Gastric ulcers? No GI Bleed? No Hernia? No Thyroid Problems? No Hypothyroidism? Yes CVA? Yes Seizures? Yes Diabetes? No Insulin Dependent: No Insulin Pump: No Home FSBS? No Renal Insuffiency? No End Stage Renal Disease? No UTI? No Stones? No BPH? No GB Disease: Yes Nephritic Syndrome? No Asplenia? No Hepatitis? No Sickle Cell Disease? No Arthritis? Yes Migraines? No Cataracts? No Glaucoma? No MRSA? No HIV? No TB? No Anxiety? No Depression? No Cancer? No More? No Immunization Hx DT/Tetanus 1-4 YRS Flu 2015-FSN Pneumonia Received In Past Surgical Hx Previous Surgery?Y LOLITA,BSO BLADDER TACH CVA (2006) CYCTOCELE, ENTEROCELE KNEE SURGERY COLONOSCOPY GALLBLADDER [id number] BACK SURGERY Family History Family Hx Diabetes No CAD Yes Hypertension Yes Hyperlipidemia No Cancer Yes TB No Social History Smoking Hx Smoker: Never Smoker Tobacco: No Packs/day N/A Alcohol Alcohol: No Review of Systems All Other Systems Reviewed and Negative Cardiovascular see HPI Gastrointestinal see HPI Physical Exam Vital Signs Vital Signs Date Time Temp Pulse Resp B/P Pulse O2 O2 Flow FiO2 Ox Delivery Rate 08/08 1703 83 20 168/83 98 08/08 1658 20 08/08 1627 98.4 80 16 196/93 98 General Appearance normal appearance, WD/WN, no apparent distress Eye Exam - bilateral eye normal exam, bilateral eye PERRL, bilateral eye EOMI Neck normal inspection, non-tender, supple, full range of motion Respiratory Status Yes: trachea midline, chest symmetrical, non tender chest. No: respiratory distress, tender on palpation, use of accessory muscles, pain on inspiration, pain on expiration, productive cough, non productive cough. Lung Sounds bilateral: normal breath sounds, lungs clear. Cardiovascular normal exam, regular rate/rhythm, no peripheral edema, no gallop, no JVD, no murmur, no rub, normal peripheral pulses Gastrointestinal normal bowel sounds, normal exam, non tender, soft, no organomegaly, no pulsatile mass, no guarding, no rebound Extremities non-tender, normal range of motion, normal inspection, normal capillary refill, no calf tenderness, very minimable/trace ankle edema, nonpitting Strength 5 Upper Ext (L), 5 Upper Ext (R), 5 Lower Ext (L), 5 Lower Ext (R) Neurologic alert, normal exam, no motor/sensory deficits, oriented x 3 Glascow Coma Scale Glascow Coma Scale Response Value EYE response: 4 Spontaneously 4 MOTOR response: 6 OBEYS 6 VERBAL response: 5 Oriented & Converses 5 Total 15 Skin intact, normal color, warm/dry Medical Decision Making LABS/Meds/Orders Pt receiving controlled substance in ED? No Results/Orders Laboratory Tests 08/08/17 1640: Sodium 141, Potassium 3.9, Chloride 105, Carbon Dioxide 27, BUN 11, Creatinine 1.0, Estimated Creat Clear 58, Estimated GFR (MDRD) 54 L, Glucose 100, Calcium 9.0, Total Bilirubin 0.6, AST 26, ALT 15, Alkaline Phosphatase 94, Creatine Kinase 80, CK-MB (CK-2) Rel Index 0.6, CK and CKMB Interp < 0.5, Troponin I < 0.02, Total Protein 6.6, Albumin 3.2 L, Globulin 3.4 H, Albumin/Globulin Ratio 0.9 L, WBC 4.4 L, RBC 3.73 L, Hgb 10.6 L, Hct 31.2 L, MCV 83.8, RDW 12.5, Plt Count 112 L, MPV 10.6 H, Gran % 42.4, Gran # 1.9, Lymphocytes % 32.6, Monocytes % 10.0 H, Eosinophils % 13.8 H, Basophils % 1.1, Lymphocytes # 1.4, Monocytes # 0.4, Eosinophils # 0.6 H, Basophils # 0.1, PUBS MCHC 34.0, MCH 28.5 Current Medication Orders Sig/Son Start time Last Medication Dose Route Stop Time Status Admin Aspirin 324 MG ONCE ONE 08/08 170 DC 08/08 PO 08/08 170 1659 Nitroglycerin 0.4 MG ONCE ONE 08/08 1700 DC 08/08 SL 08/08 1701 1658 Aspirin 0 .STK-MED ONE 08/08 165 DC .ROUTE Nitroglycerin 0 .STK-MED ONE 08/08 165 DC SL Sodium Chloride 10 ML PRN PRN 08/08 1645 AC IV 08/09 1631 Orders Procedure Date/time Status 12 LEAD EKG-BESSON (INITIAL) 08/08 163 Active ELECTROCARDIOGRAM REQUEST 08/08 163 Active CHEST(2 VIEWS-NOT PORTABLE) 08/08 163 Active IV SALINE LOCK 08/08 163 Active CBC WITH AUTO DIFF 08/08 163 Complete CARDIAC ENZYMES 08/08 163 Complete CHEM 12 PROFILE 08/08 1632 Complete CM/EKG CM/EKG EKG rate, NSR, rhythm, no evid. of ischemic chgs, no ectopy, normal QRS, normal MN, normal EKG (Inc RBBB) KAT Score for STEMI KAT STEMI SCORE KAT STEMI SCORE Response Value Age of patient 65-74 years 2 Hx of anginal chest pain Absent 0 Hx of hypertension Present 1 Hx of diabetes Absent 0 Systolic Blood Pressure 100 mg Hg or more 0 Heart Rate Less than 100 beats/min 0 Killip Class I-No heart failure 0 Patient weight Less than 67 kg 0 Anterior MN No 0 Left Bundle Branch Block Absent 0 Treatment delay after attack 4 hrs or more 1 Total 4 AMI/Fibrinolytics Cardiac Chest Pain/AMI EKG within 10min of arrival Yes ASA given within last 24 hr Yes Progress ED Progress Notes Date 08/08/17 Time 174 Comment Resting comfortably, NAD at d/c Departure Departure Time of Disposition 1741 Disposition DC Home or Self Care(routine) Clinical Impression Primary Impression: Atypical chest pain Condition STABLE Referrals Jhonny Solano MD (Family) Patient Instructions DI for Atypical Chest Pain Additional Instructions See Dr. Solano for follow up in one to two days. Continue current recommended medications. Discharge Counseling Counseled pt/family regarding diagnosis, test results, medications/RX, home care, follow up needs ED Critical Care Critical Care No at 9089
--- NOTE | 2017-08-08 16:37 | Emergency Room Report ---
History of Present Illness Time Seen by MD Grullon Presenting Problem in Triage Pt arrived:Walked Presenting Problem:PT C/O DULL ACHEY PAIN IN HER CHEST/EPIGASTRIC AREA THAT HAS BEEN THERE SINCE YESTERDAY Onset of symptoms date/time:/ or onset unknown for:MEDICAL HX UNKNOWN Treatment Prior to Arrival: PIG CASTER Provided by: Sepsis Risk Assessment: Temp: 98.4 B/P: 196/93 MAP: 127 Pulse: 80 Resp: 16 Recent fever? N Clinical Suspician of Infection? N Mental Status: 1 - Regular (Normal Baseline) Sepsis Risk:Low Sepsis Risk Have you (or family members/close friends) recently traveled outside the [place]? N If Yes, where/when: Have you had exposure to infectious disease within the past month? N TB? Other? Specify: Dull substernal pain since last night, not exertional, worse when supine, reports hx CHF with a little edema but no kristi calf pain; no BENNETT, no palpitations, hasn't taken her aspirin for two days as ran out; does not take diuretics regularly. Pain constant and dull. No belching. Had Takasubo cardiomyopathy diagnosed on [facility] 04/19/17 Dr. Clark [facility]; Echo 06/07/17 diastolic dysfunction grade 1; EF 45 per cent. ALLERGIES Coded Allergies: amantadine (I-HIVES 06/15/16) baclofen (E-[id number]-XXGL/THROAT 06/15/16) carvedilol (COUGH 06/15/16) promethazine (I-HIVES CAN TAKE SHOT NOT TABLET 03/02/17) rosuvastatin (I-ITCHING 06/15/16) simvastatin (L-WWERQQ-MRVO/THROAT 06/15/16) Home Medications Active Scripts Prednisone (Prednisone 20MG) 20 MG PO BID #10 TAB Prov: 04/23/17 Ferrous Sulfate (Ferrous Sulfate 325MG) 325 MG PO DAILY #30 TAB Ref 2 Prov: 11/14/16 Furosemide (Lasix 20MG) 20 MG PO DAILY #30 TAB Prov: 04/20/17 LEVOTHYROXINE SOD (Levothyroxine 0.025MG) 0.025 MG PO DAILY #30 TAB Ref 2 Prov: 04/20/17 Cefuroxime Axetil (Cefuroxime) 500 MG PO BID #10 TAB Prov: 04/20/17 IRBESARTAN (Irbesartan) 75 MG PO BID #60 TAB Ref 2 Prov: 04/20/17 Carvedilol (Coreg 6.25MG) 6.25 MG PO BID #60 TAB Ref 2 Prov: 04/20/17 Reported Medications Gabapentin (Gabapentin 600MG) 300 MG PO BID Tramadol Hcl (Ultram 50MG) 50 MG PO BID PRN PAIN Amitriptyline Hcl (Amitriptyline) 50 MG PO QHS #90 History Medical History General CAD? No Angina: No MT: No Hypertension? Yes Hyperlipidemia? No CHF? No DVT? No PE? No COPD? No Asthma? Yes Anemia? No GERD? No Gastric ulcers? No GI Bleed? No Hernia? No Thyroid Problems? No Hypothyroidism? Yes CVA? Yes Seizures? Yes Diabetes? No Insulin Dependent: No Insulin Pump: No Home FSBS? No Renal Insuffiency? No End Stage Renal Disease? No UTI? No Stones? No BPH? No GB Disease: Yes Nephritic Syndrome? No Asplenia? No Hepatitis? No Sickle Cell Disease? No Arthritis? Yes Migraines? No Cataracts? No Glaucoma? No MRSA? No HIV? No TB? No Anxiety? No Depression? No Cancer? No More? No Immunization Hx DT/Tetanus 1-4 YRS Flu 2015-FSN Pneumonia Received In Past Surgical Hx Previous Surgery?Y LOLITA,BSO BLADDER TACH CVA (2006) CYCTOCELE, ENTEROCELE KNEE SURGERY COLONOSCOPY GALLBLADDER [id number] BACK SURGERY Family History Family Hx Diabetes No CAD Yes Hypertension Yes Hyperlipidemia No Cancer Yes TB No Social History Smoking Hx Smoker: Never Smoker Tobacco: No Packs/day N/A Alcohol Alcohol: No Review of Systems All Other Systems Reviewed and Negative Cardiovascular see HPI Gastrointestinal see HPI Physical Exam Vital Signs Vital Signs Date Time Temp Pulse Resp B/P Pulse O2 O2 Flow FiO2 Ox Delivery Rate 08/08 1703 83 20 168/83 98 08/08 1658 20 08/08 1627 98.4 80 16 196/93 98 General Appearance normal appearance, WD/WN, no apparent distress Eye Exam - bilateral eye normal exam, bilateral eye PERRL, bilateral eye EOMI Neck normal inspection, non-tender, supple, full range of motion Respiratory Status Yes: trachea midline, chest symmetrical, non tender chest. No: respiratory distress, tender on palpation, use of accessory muscles, pain on inspiration, pain on expiration, productive cough, non productive cough. Lung Sounds bilateral: normal breath sounds, lungs clear. Cardiovascular normal exam, regular rate/rhythm, no peripheral edema, no gallop, no JVD, no murmur, no rub, normal peripheral pulses Gastrointestinal normal bowel sounds, normal exam, non tender, soft, no organomegaly, no pulsatile mass, no guarding, no rebound Extremities non-tender, normal range of motion, normal inspection, normal capillary refill, no calf tenderness, very minimable/trace ankle edema, nonpitting Strength 5 Upper Ext (L), 5 Upper Ext (R), 5 Lower Ext (L), 5 Lower Ext (R) Neurologic alert, normal exam, no motor/sensory deficits, oriented x 3 Glascow Coma Scale Glascow Coma Scale Response Value EYE response: 4 Spontaneously 4 MOTOR response: 6 OBEYS 6 VERBAL response: 5 Oriented & Converses 5 Total 15 Skin intact, normal color, warm/dry Medical Decision Making LABS/Meds/Orders Pt receiving controlled substance in ED? No Results/Orders Laboratory Tests 08/08/17 1640: Sodium 141, Potassium 3.9, Chloride 105, Carbon Dioxide 27, BUN 11, Creatinine 1.0, Estimated Creat Clear 58, Estimated GFR (MDRD) 54 L, Glucose 100, Calcium 9.0, Total Bilirubin 0.6, AST 26, ALT 15, Alkaline Phosphatase 94, Creatine Kinase 80, CK-MB (CK-2) Rel Index 0.6, CK and CKMB Interp < 0.5, Troponin I < 0.02, Total Protein 6.6, Albumin 3.2 L, Globulin 3.4 H, Albumin/Globulin Ratio 0.9 L, WBC 4.4 L, RBC 3.73 L, Hgb 10.6 L, Hct 31.2 L, MCV 83.8, RDW 12.5, Plt Count 112 L, MPV 10.6 H, Gran % 42.4, Gran # 1.9, Lymphocytes % 32.6, Monocytes % 10.0 H, Eosinophils % 13.8 H, Basophils % 1.1, Lymphocytes # 1.4, Monocytes # 0.4, Eosinophils # 0.6 H, Basophils # 0.1, PUBS MCHC 34.0, MCH 28.5 Current Medication Orders Sig/Son Start time Last Medication Dose Route Stop Time Status Admin Aspirin 324 MG ONCE ONE 08/08 170 DC 08/08 PO 08/08 170 1659 Nitroglycerin 0.4 MG ONCE ONE 08/08 1700 DC 08/08 SL 08/08 1701 1658 Aspirin 0 .STK-MED ONE 08/08 165 DC .ROUTE Nitroglycerin 0 .STK-MED ONE 08/08 165 DC SL Sodium Chloride 10 ML PRN PRN 08/08 1645 AC IV 08/09 1631 Orders Procedure Date/time Status 12 LEAD EKG-BESSON (INITIAL) 08/08 163 Active ELECTROCARDIOGRAM REQUEST 08/08 163 Active CHEST(2 VIEWS-NOT PORTABLE) 08/08 163 Active IV SALINE LOCK 08/08 163 Active CBC WITH AUTO DIFF 08/08 163 Complete CARDIAC ENZYMES 08/08 163 Complete CHEM 12 PROFILE 08/08 1632 Complete CM/EKG CM/EKG EKG rate, NSR, rhythm, no evid. of ischemic chgs, no ectopy, normal QRS, normal [place], normal EKG (Inc RBBB) KAT Score for STEMI KAT STEMI SCORE KAT STEMI SCORE Response Value Age of patient 65-74 years 2 Hx of anginal chest pain Absent 0 Hx of hypertension Present 1 Hx of diabetes Absent 0 Systolic Blood Pressure 100 mg Hg or more 0 Heart Rate Less than 100 beats/min 0 Killip Class I-No heart failure 0 Patient weight Less than 67 kg 0 Anterior MT No 0 Left Bundle Branch Block Absent 0 Treatment delay after attack 4 hrs or more 1 Total 4 AMI/Fibrinolytics Cardiac Chest Pain/AMI EKG within 10min of arrival Yes ASA given within last 24 hr Yes Progress ED Progress Notes Date 08/08/17 Time 174 Comment Resting comfortably, NAD at d/c Departure Departure Time of Disposition 1741 Disposition DC Home or Self Care(routine) Clinical Impression Primary Impression: Atypical chest pain Condition STABLE Referrals Jhonny Solano MD (Family) Patient Instructions DI for Atypical Chest Pain Additional Instructions See Dr. Solano for follow up in one to two days. Continue current recommended medications. Discharge Counseling Counseled pt/family regarding diagnosis, test results, medications/RX, home care, follow up needs ED Critical Care Critical Care No at [id number]
--- OUTSIDE RECORDS SUMMARY | 2017-08-08 16:41 | External Medical Summary Rpt | CCD ---
Author Author , ELSA HUNTER Address Unknown Phone [email or web address] Care Team Providers Care Strawhat Sizer Name Role Phone Matteo Louis MD, Unavailable Unavailable Matteo Dsouza MD, Unavailable Unavailable Lucero Dsouza MD Purpose Continuity of Care Document - 06-19-2013 through 2016 Problems Code Diagnosis DOS Provider Status 518.81 Respiratory Andrea failure [facility] [id number] Cholecystit [facility] Allergies, Adverse Reactions, Alerts Type Drug Allergy Adverse Reaction to Substance Substance Reaction Severity Baclofen Q-NVCDEO-PQHK/THROAT Unknown Promethazine I-HIVES Unknown Acetaminophen K-SGAIHR-FWOP/THROAT Unknown Amantadine I-HIVES Unknown Simvastatin W-RPTUDE-MBQA/THROAT Unknown Medications Na ND Rx Da Fi Fi Am Da Di Ph RX Ph St me C No te ll ll ou ys ag ar # ys at rm s nt no ma ic us Or Da si cy ia de te s n re d FU 00 09 0 No RO 40 -1 SE 96 0- Lo OR 10 20 ng DE 20 13 er 4 40 Ac ti MG ve /4 ML AL LO 51 09 0 No PE 07 -1 RA 90 0- Lo OR 69 20 ng DE 02 13 er 2 0 Ac MG ti ve CA PS UL E LO 00 09 1 No VE 07 -0 NO 50 9- Lo X 62 20 ng 40 04 13 er 1 MG Ac /0 ti .4 ve ML SY RI NG E Li 00 09 1 No si 17 -0 no 23 9- Lo pr 75 20 ng il 91 13 er 0 10 Ac MG ti ve Ta bl et FU 51 09 1 No RO 07 -0 SE 90 9- Lo OR 07 20 ng DE 22 13 er 0 20 Ac ti MG ve TA BL ET IN 00 09 1 No VA 00 -0 NZ 63 9- Lo 1 84 20 ng 57 13 er GM 1 Ac AD ti D- ve VA NT AG E AL SO 00 09 1 No DI 40 -0 UM 97 9- Lo 98 20 ng CH 43 13 er LO 6 RI Ac DE ti ve 0. 9% [place] TI ON IN 00 09 1 No VA 00 -0 NZ 63 8- Lo 1 84 20 ng 57 13 er GM 1 Ac AD ti D- ve VA NT AG E AL Li 00 09 0 No si 17 -0 no 23 8- Lo pr 75 20 ng il 91 13 er 0 10 Ac MG ti ve Ta bl et LO 00 09 0 No VE 07 -0 NO 50 8- Lo X 62 20 ng 40 04 13 er 1 MG Ac /0 ti .4 ve ML SY RI NG E ON 00 09 2 No DA 64 -0 NS 16 8- Lo ET 08 20 ng RO 02 13 er N 5 HC Ac L ti 4 ve MG /2 ML AL HY [address] 51 -0 AL 70 8- Lo AZ 90 20 ng IN 12 13 er E 5 20 Ac ti MG ve /M L AL AL 49 09 2 No BU 50 -0 TE 20 8- Lo RO 69 20 ng L 30 13 er 0. 3 04 Ac 2% ti ve 1. 25 MG /3 ML NE Fa 63 09 2 No mo 32 -0 ti 30 8- Lo di 73 20 ng ne 90 13 er 2 20 Ac MG ti /2 ve ML Vi al Sa 63 09 2 No li 80 -0 ne 70 8- Lo 10 20 ng Fl 07 13 er us 5 h Ac 10 ti ML ve Sy ri ng e SO 00 09 1 No DI 40 -0 UM 97 8- Lo 98 20 ng CH 30 13 er LO 9 RI Ac DE ti ve 0. 9% SO [place] TI ON NT 00 09 0 No G 40 -0 0. 91 7- Lo 2 48 20 ng MG 20 13 er /M 2 L Ac IN ti ve D5 W LO 00 09 0 No VE 07 -0 NO 50 7- Lo X 62 20 ng 40 04 13 er 1 MG Ac /0 ti .4 ve ML SY RI NG E CA 51 09 0 No RV 07 -0 ED 90 7- Lo IL 93 20 ng OL 12 13 er 0 12 Ac .5 ti ve MG TA BL ET KE 00 09 1 No TO 40 -0 RO 93 7- Lo LA 79 20 ng C 50 13 er 30 1 Ac MG ti /M ve L AL AL 49 09 1 No BU 50 -0 TE 20 7- Lo RO 69 20 ng L 30 13 er 0. 3 04 Ac 2% ti ve 1. 25 MG /3 ML NE Li 00 09 0 No si 17 -0 no 23 7- Lo pr 75 20 ng il 91 13 er 0 10 Ac MG ti ve Ta bl et FU 51 09 1 No RO 07 -0 SE 90 7- Lo OR 07 20 ng DE 22 13 er 0 20 Ac ti MG ve TA BL ET HY [address] 51 -0 AL 70 7- Lo AZ 90 20 ng IN 12 13 er E 5 20 Ac ti MG ve /M L AL Fa 63 09 1 No mo 32 -0 ti 30 7- Lo di 73 20 ng ne 90 13 er 2 20 Ac MG ti /2 ve ML Vi al Sa 63 09 1 No li 80 -0 ne 70 7- Lo 10 20 ng Fl 07 13 er us 5 h Ac 10 ti ML ve Sy ri ng e IN 00 09 1 No VA 00 -0 NZ 63 7- Lo 1 84 20 ng 57 13 er GM 1 Ac AD ti D- ve VA NT AG E AL SO 00 09 1 No DI 40 -0 UM 97 7- Lo 98 20 ng CH 43 13 er LO 6 RI Ac DE ti ve 0. 9% SO [place] TI ON CL 00 09 0 No IN 40 -0 DA 94 6- Lo MY 05 20 ng CI 50 13 er N 3 15 Ac 0 ti MG ve /M L AD DV AN IN 00 09 1 No VA 00 -0 NZ 63 6- Lo 1 84 20 ng 57 13 er GM 1 Ac AD ti D- ve VA NT AG E AL SO 00 09 1 No DI 40 -0 UM 97 6- Lo 98 20 ng CH 30 13 er LO 9 RI Ac DE ti ve 0. 9% SO [place] TI ON DI 63 09 1 No WI 32 -0 IV 30 6- Lo AN 26 20 ng 96 13 er 1, 5 00 Ac 0 ti MG ve /1 00 ML AL LI 00 09 0 No DO 40 -0 CA 94 6- Lo IN 27 20 ng E 60 13 er HC 1 L Ac 1% ti ve AL NA 63 09 0 No RO 32 -0 PI 30 6- Lo N 28 20 ng 0. 63 13 er 5% 0 Ac 15 ti 0 ve MG /3 0 ML AL KE 00 09 1 No TO 40 -0 RO 93 6- Lo LA 79 20 ng C 50 13 er 30 1 Ac MG ti /M ve L AL TA 00 09 1 No LW 40 -0 IN 91 6- Lo 94 20 ng 30 10 13 er 1 MG Ac /M ti L ve AM PU L LO 00 09 0 No VE 07 -0 NO 50 6- Lo X 62 20 ng 30 43 13 er 1 MG Ac /0 ti .3 ve ML SY RI NG E IS 00 09 0 No OV 27 -0 UE 01 6- Lo -3 31 20 ng 70 65 13 er 2 76 Ac % ti IN ve FU S ALDO TT LE RA 63 09 0 No D- 80 -0 SA 70 6- Lo LI 10 20 ng NE 07 13 er 5A FL Ac US ti H ve 10 ML SY RI NG E LA 00 09 1 No BE 40 -0 TA 92 6- Lo LO 26 20 ng L 72 13 er HC 0 L Ac 10 ti 0 ve MG /2 0 ML VL AL 49 09 1 No BU 50 -0 TE 20 6- Lo RO 69 20 ng L 30 13 er 0. 3 04 Ac 2% ti ve 1. 25 MG /3 ML NE Fa 63 09 1 No mo 32 -0 ti 30 6- Lo di 73 20 ng ne 90 13 er 2 20 Ac MG ti /2 ve ML Vi al Sa 63 09 1 No li 80 -0 ne 70 6- Lo 10 20 ng Fl 07 13 er us 5 h Ac 10 ti ML ve Sy ri ng e SO 00 09 1 No DI 40 -0 UM 97 5- Lo 98 20 ng CH 30 13 er LO 9 RI Ac DE ti ve 0. 9% SO [place] TI ON ON 00 09 1 No DA 64 -0 NS 16 5- Lo ET 08 20 ng RO 02 13 er N 5 HC Ac L ti 4 ve MG /2 ML AL Na 76 09 0 No lo 32 -0 xo 91 5- Lo ne 46 20 ng 90 13 er 2M 5 G/ Ac 2M ti L ve Sy ri ng e KE 00 09 1 No TO 40 -0 RO 93 5- Lo LA 79 20 ng C 50 13 er 30 1 Ac MG ti /M ve L AL Vital Signs 06-24-2013 16:38 Name Value Interpretat Reference Comment ion Range Body 98.3 [degF] Temperature BP 77 mm[Hg] Diastolic BP Systolic 156 mm[Hg] Heart 55 /min Rate/Pulse Respiratory 16 /min Rate 06-24-2013 08:00 Name Value Interpretat Reference Comment ion Range O2% 94 % 06-20-2013 12:14 Name Value Interpretat Reference Comment ion Range Weight 66.679 kg Measured 06-19-2013 20:00 Name Value Interpretat Reference Comment ion Range O2% 98 % 06-19-2013 18:26 Name Value Interpretat Reference Comment ion Range Body 97.4 [degF] Temperature BP 87 mm[Hg] Diastolic BP Systolic 165 mm[Hg] Heart 88 /min Rate/Pulse Height 162.56 cm Respiratory 12 /min Rate Weight 162 [lb_av] Measured Results Labs Lab Lab Date Result Refere Interp Status Commen Order Detail nces retati t Range on Mycoplasma pneumoniae IgM Ab [Presence] in Serum by Immunoassay (04-16-2017 08:25) Mycopla NONREAC NONREAC complet sma 017 TIVE TIVE ed pneumon 08:25 iae IgM Ab [Presen ce] in Serum by Immunoa ssay Streptococcus pyogenes Ag [Presence] in Unspecified specimen (04-15-2017 13:40) Strepto NOT NOTDETE complet coccus 017 DETECTE CTED ed pyogene 13:40 D s Ag [Presen ce] in Unspeci fied specime n Influenza virus A+B Ag [Presence] in Unspecified specimen (04-15-2017 13:34) Influen NOT NOT complet za 017 DETECTE DETECTD ed virus A 13:34 D Ag [Presen ce] in Unspeci fied specime n INFLUEN NOT NOT complet ZA B 017 DETECTE DETECTD ed ANTIGEN 13:34 D COMPREHENSIVE METABOLIC PANEL (06-24-2013 06:40) Glucose 86 74-106 complet 013 mg/dL ed Bld-mCn 06:40 c BUN 7 mg/dL 7-18 complet Bld-mCn 013 ed c 06:40 Creat 1.1 0.6-1.0 complet SerPl-m 013 mg/dL ed Cnc 06:40 ESTIMAT 60 50-200 complet ED 013 ML/MIN ed CREATIN 06:40 INE CLEARAN CE GFR 49 59- complet (ESTIMA 013 ML/MIN ed MAIRA) 06:40 Sodium 139 136-145 complet SerPl-s 013 mmoL/L ed Cnc 06:40 Potassi 3.1 3.5-5.1 complet um 013 mmoL/L ed SerPl-s 06:40 Cnc Chlorid 103 98-107 complet e 013 mmoL/L ed SerPl-s 06:40 Cnc CO2 26 21.0-32 complet SerPl-s 013 mmoL/L .0 ed Cnc 06:40 Calcium 8.5 8.5-10. complet 013 mg/dL 1 ed SerPl-m 06:40 Cnc Prot 6.1 6.4-8.2 complet SerPl-m 013 gm/dL ed Cnc 06:40 Albumin 2.7 3.4-5.0 complet 013 gm/dL ed SerPl-m 06:40 Cnc Globuli 3.4 1.3-3.2 complet n 013 gm/dL ed Ser-mCn 06:40 c Albumin 0.8 UNK 1.1-1.8 complet /Glob 013 ed SerPl-m 06:40 Rto Bilirub 1.9 0.2-1.0 complet 013 mg/dL ed SerPl-m 06:40 Cnc AST 218 U/L 15-37 complet SerPl-c 013 ed Cnc 06:40 ALT 238 U/L 30-65 complet SerPl-c 013 ed Cnc 06:40 ALP 198 U/L 50-136 complet SerPl-c 013 ed Cnc 06:40 CBC with AUTO DIFF (06-24-2013 06:40) WBC # -10-2 3.9 4.8-10. complet Bld 013 K/MM3 8 ed Auto 06:40 RBC # 10-2 3.93 4.2-5.4 complet Bld 013 M/mm3 ed Auto 06:40 Hgb 06-24- 11.1 12.2-16 complet Bld-mCn 013 g/dL .2 ed c 06:40 Hct Fr 33.1 % 37.0-47 complet Bld 013 .0 ed 06:40 MCV RBC 09-10-2 84.2 fl 82.2-97 complet 013 .8 ed 06:40 MCH RBC 10-2 28.2 pg 27-31.2 complet Qn 013 ed Auto 06:40 MEAN -10-2 33.5 31.8-35 complet CORPUSC 013 g/dl .4 ed ULAR 06:40 HGB CONC RDW RBC 10-2 15.6 % 11.5-17 complet Auto 013 .5 ed 06:40 Platele -10-2 119 142-424 complet t Bld 013 K/mm3 ed Ql 06:40 Manual MEAN 10.8 fl 7.4-10. complet PLATELE 013 4 ed T 06:40 VOLUME Granulo -10-2 51.5 % 37.0-80 complet cytes 013 .0 ed Fr Bld 06:40 Auto LYMPH % -10-2 30.9 % 10-50.0 complet 013 ed 06:40 Monocyt 09-10-2 9.0 % 1.7-9.3 complet es Fr 013 ed Bld 06:40 Auto Eosinop 09-10-2 8.4 % 0.1-12. complet hil Fr 013 0 ed Bld 06:40 Auto Basophi 09-10-2 0.4 % 0.1-2.0 complet ls Fr 013 ed Bld 06:40 Auto Granulo 09-10-2 2.0 1.8-7.8 complet cytes # 013 K/mm3 ed Bld 06:40 Auto Lymphoc 09-10-2 1.2 0.7-4.5 complet ytes Fr 013 K/mm3 ed Bld 06:40 Auto Monocyt 09-10-2 0.4 0.1-1.0 complet es # 013 K/mm3 ed Bld 06:40 Auto Eosinop 09-10-2 0.3 0.0-0.4 complet hil # 013 K/mm3 ed Bld 06:40 Auto Basophi 09-10-2 0.0 0-0.2 complet ls # 013 K/MM3 ed Bld 06:40 Auto BASIC METABOLIC PANEL (06-23-2013 04:10) Glucose 06-23- 82 74-106 complet 013 mg/dL ed Bld-mCn 04:10 c BUN 06-23-2 10 7-18 complet Bld-mCn 013 mg/dL ed c 04:10 Creat 1.1 0.6-1.0 complet SerPl-m 013 mg/dL ed Cnc 04:10 ESTIMAT 62 50-200 complet ED 013 ML/MIN ed CREATIN 04:10 INE CLEARAN CE GFR 49 59- complet (ESTIMA 013 ML/MIN ed MAIRA) 04:10 Sodium 138 136-145 complet SerPl-s 013 mmoL/L ed Cnc 04:10 Potassi 3.3 3.5-5.1 complet um 013 mmoL/L ed SerPl-s 04:10 Cnc Chlorid 104 98-107 complet e 013 mmoL/L ed SerPl-s 04:10 Cnc CO2 25 21.0-32 complet SerPl-s 013 mmoL/L .0 ed Cnc 04:10 Calcium 8.1 8.5-10. complet 013 mg/dL 1 ed SerPl-m 04:10 Cnc CBC with AUTO DIFF (06-23-2013 04:10) WBC # 06-23- 3.8 4.8-10. complet Bld 013 K/MM3 8 ed Auto 04:10 RBC # 06-23- 3.82 4.2-5.4 complet Bld 013 M/mm3 ed Auto 04:10 Hgb 10.9 12.2-16 complet Bld-mCn 013 g/dL .2 ed c 04:10 Hct Fr 32.1 % 37.0-47 complet Bld 013 .0 ed 04:10 MCV RBC 83.9 fl 82.2-97 complet 013 .8 ed 04:10 MCH RBC 28.4 pg 27-31.2 complet Qn 013 ed Auto 04:10 MEAN 33.8 31.8-35 complet CORPUSC 013 g/dl .4 ed ULAR 04:10 HGB CONC RDW RBC 15.9 % 11.5-17 complet Auto 013 .5 ed 04:10 Platele 104 142-424 complet t Bld 013 K/mm3 ed Ql 04:10 Manual MEAN 09-09-2 10.2 fl 7.4-10. complet PLATELE 013 4 ed T 04:10 VOLUME Granulo -09-2 60.5 % 37.0-80 complet cytes 013 .0 ed Fr Bld 04:10 Auto LYMPH % -09-2 24.4 % 10-50.0 complet 013 ed 04:10 Monocyt -09-2 6.7 % 1.7-9.3 complet es Fr 013 ed Bld 04:10 Auto Eosinop -09-2 8.0 % 0.1-12. complet hil Fr 013 0 ed Bld 04:10 Auto Basophi -09-2 0.4 % 0.1-2.0 complet ls Fr 013 ed Bld 04:10 Auto Granulo -09-2 2.3 1.8-7.8 complet cytes # 013 K/mm3 ed Bld 04:10 Auto Lymphoc -09-2 0.9 0.7-4.5 complet ytes Fr 013 K/mm3 ed Bld 04:10 Auto Monocyt -09-2 0.3 0.1-1.0 complet es # 013 K/mm3 ed Bld 04:10 Auto Eosinop -09-2 0.3 0.0-0.4 complet hil # 013 K/mm3 ed Bld 04:10 Auto Basophi -09-2 0.0 0-0.2 complet ls # 013 K/MM3 ed Bld 04:10 Auto COMPREHENSIVE METABOLIC PANEL (06-22-2013 06:05) Glucose 99 74-106 complet 013 mg/dL ed Bld-mCn 06:05 c BUN 13 7-18 complet Bld-mCn 013 mg/dL ed c 06:05 Creat 1.2 0.6-1.0 complet SerPl-m 013 mg/dL ed Cnc 06:05 ESTIMAT 57 50-200 complet ED 013 ML/MIN ed CREATIN 06:05 INE CLEARAN CE GFR 45 59- complet (ESTIMA 013 ML/MIN ed MAIRA) 06:05 Sodium 140 136-145 complet SerPl-s 013 mmoL/L ed Cnc 06:05 Potassi 3.5 3.5-5.1 complet um 013 mmoL/L ed SerPl-s 06:05 Cnc Chlorid 105 98-107 complet e 013 mmoL/L ed SerPl-s 06:05 Cnc CO2 29 21.0-32 complet SerPl-s 013 mmoL/L .0 ed Cnc 06:05 Calcium 8.1 8.5-10. complet 013 mg/dL 1 ed SerPl-m 06:05 Cnc Prot 5.9 6.4-8.2 complet SerPl-m 013 gm/dL ed Cnc 06:05 Albumin 2.8 3.4-5.0 complet 013 gm/dL ed SerPl-m 06:05 Cnc Globuli 3.1 1.3-3.2 complet n 013 gm/dL ed Ser-mCn 06:05 c Albumin 0.9 UNK 1.1-1.8 complet /Glob 013 ed SerPl-m 06:05 Rto Bilirub 3.7 0.2-1.0 complet 013 mg/dL ed SerPl-m 06:05 Cnc AST 516 U/L 15-37 High complet SerPl-c 013 alert ed Cnc 06:05 ALT 345 U/L 30-65 High complet SerPl-c 013 alert ed Cnc 06:05 ALP 157 U/L 50-136 complet SerPl-c 013 ed Cnc 06:05 CBC with AUTO DIFF (06-22-2013 06:05) WBC # 08-2 4.4 4.8-10. complet Bld 013 K/MM3 8 ed Auto 06:05 RBC # 08-2 3.90 4.2-5.4 complet Bld 013 M/mm3 ed Auto 06:05 Hgb 10.1 12.2-16 complet Bld-mCn 013 g/dL .2 ed c 06:05 Hct Fr 31.7 % 37.0-47 complet Bld 013 .0 ed 06:05 MCV RBC 81.2 fl 82.2-97 complet 013 .8 ed 06:05 MCH RBC 25.9 pg 27-31.2 complet Qn 013 ed Auto 06:05 MEAN 31.9 31.8-35 complet CORPUSC 013 g/dl .4 ed ULAR 06:05 HGB CONC RDW RBC 16.7 % 11.5-17 complet Auto 013 .5 ed 06:05 Platele 106 142-424 complet t Bld 013 K/mm3 ed Ql 06:05 Manual Granulo 76.3 % 37.0-80 complet cytes 013 .0 ed Fr Bld 06:05 Auto LYMPH % 18.3 % 10-50.0 complet 013 ed 06:05 Monocyt 5.4 % 1.7-9.3 complet es Fr 013 ed Bld 06:05 Auto Granulo 06-22- 3.4 1.8-7.8 complet cytes # 013 K/mm3 ed Bld 06:05 Auto Lymphoc 0.8 0.7-4.5 complet ytes Fr 013 K/mm3 ed Bld 06:05 Auto Monocyt 06-22-2 0.2 0.1-1.0 complet es # 013 K/mm3 ed Bld 06:05 Auto ARTERIAL BLOOD GAS (06-21-2013 07:15) ARTERIA 7.44 7.35-7. complet L PH 013 MMOL/L 45 ed 07:15 ARTERIA 36.0 35.0-45 complet L PCO2 013 MMHG .0 ed 07:15 ARTERIA 108.0 80-100 complet L PO2 013 MMHG ed 07:15 ARTERIA 24.0 22.0-26 complet L HCO3 013 MMOL/L .0 ed 07:15 ARTERIA 2 16.2 23-27 complet L TCO2 013 MMOL/L ed 07:15 Base -0.2 -2.4-+2 complet excess 013 MMOL/L .3 ed BldA-sC 07:15 nc ARTERIA 98 % 90-100 complet L O2 013 ed SAT 07:15 TIDAL 600 UNK complet VOLUME 013 ed 07:15 OXYGEN 50 UNK complet 013 ed 07:15 VENT 4 UNK complet RATE 013 ed 07:15 PEEP 06-21- 6 UNK complet 013 ed 07:15 PRESSUR 10 UNK complet E 013 ed SUPPORT 07:15 Arteria ACCEPTA complet l 013 BLE ed patency 07:15 Wrist a SOURCE LEFT complet 013 RADIAL ed 07:15 BASIC METABOLIC PANEL (06-21-2013 05:10) Glucose 135 74-106 complet 013 mg/dL ed Bld-mCn 05:10 c BUN 12 7-18 complet Bld-mCn 013 mg/dL ed c 05:10 Creat 1.2 0.6-1.0 complet SerPl-m 013 mg/dL ed Cnc 05:10 ESTIMAT 47 50-200 complet ED 013 ML/MIN ed CREATIN 05:10 INE CLEARAN CE GFR 45 59- complet (ESTIMA 013 ML/MIN ed MAIRA) 05:10 Sodium 137 136-145 complet SerPl-s 013 mmoL/L ed Cnc 05:10 Potassi 3.5 3.5-5.1 complet um 013 mmoL/L ed SerPl-s 05:10 Cnc Chlorid 102 98-107 complet e 013 mmoL/L ed SerPl-s 05:10 Cnc CO2 24 21.0-32 complet SerPl-s 013 mmoL/L .0 ed Cnc 05:10 Calcium 8.5 8.5-10. complet 013 mg/dL 1 ed SerPl-m 05:10 Cnc CBC with AUTO DIFF (06-21-2013 05:10) WBC # 06-21- 6.9 4.8-10. complet Bld 013 K/MM3 8 ed Auto 05:10 RBC # 06-21- 4.24 4.2-5.4 complet Bld 013 M/mm3 ed Auto 05:10 Hgb 11.6 12.2-16 complet Bld-mCn 013 g/dL .2 ed c 05:10 Hct Fr 34.4 % 37.0-47 complet Bld 013 .0 ed 05:10 MCV RBC 09-07-2 81.2 fl 82.2-97 complet 013 .8 ed 05:10 MCH RBC 07-2 27.5 pg 27-31.2 complet Qn 013 ed Auto 05:10 MEAN 07-2 33.9 31.8-35 complet CORPUSC 013 g/dl .4 ed ULAR 05:10 HGB CONC RDW RBC 07-2 15.2 % 11.5-17 complet Auto 013 .5 ed 05:10 Platele 07-2 144 142-424 complet t Bld 013 K/mm3 ed Ql 05:10 Manual MEAN 2 11.3 fl 7.4-10. complet PLATELE 013 4 ed T 05:10 VOLUME Granulo -07-2 83.8 % 37.0-80 complet cytes 013 .0 ed Fr Bld 05:10 Auto LYMPH % 09-07-2 9.8 % 10-50.0 complet 013 ed 05:10 Monocyt -07-2 5.9 % 1.7-9.3 complet es Fr 013 ed Bld 05:10 Auto Eosinop 09-07-2 0.5 % 0.1-12. complet hil Fr 013 0 ed Bld 05:10 Auto Basophi 09-07-2 0.1 % 0.1-2.0 complet ls Fr 013 ed Bld 05:10 Auto Granulo 09-07-2 5.8 1.8-7.8 complet cytes # 013 K/mm3 ed Bld 05:10 Auto Lymphoc 09-07-2 0.7 0.7-4.5 complet ytes Fr 013 K/mm3 ed Bld 05:10 Auto Monocyt 09-07-2 0.4 0.1-1.0 complet es # 013 K/mm3 ed Bld 05:10 Auto Eosinop 09-07-2 0.0 0.0-0.4 complet hil # 013 K/mm3 ed Bld 05:10 Auto Basophi 09-07-2 0.0 0-0.2 complet ls # 013 K/MM3 ed Bld 05:10 Auto URINALYSIS/COMPLETE (06-20-2013 13:51) ARTERIA 09-06-2 7.38 7.35-7. complet L PH 013 MMOL/L 45 ed 13:51 ARTERIA 09-06-2 38.7 35.0-45 complet L PCO2 013 MMHG .0 ed 13:51 ARTERIA 06-20- 69.3 80-100 complet L PO2 013 MMHG ed 13:51 ARTERIA 22.5 22.0-26 complet L HCO3 013 MMOL/L .0 ed 13:51 ARTERIA 23.7 23-27 complet L TCO2 013 MMOL/L ed 13:51 Base 2 -2.6 -2.4-+2 complet excess 013 MMOL/L .3 ed BldA-sC 13:51 nc ARTERIA 95 % 90-100 complet L O2 013 ed SAT 13:51 TIDAL 600 UNK complet VOLUME 013 ed 13:51 OXYGEN 50 UNK complet 013 ed 13:51 VENT 15 UNK complet RATE 013 ed 13:51 URINALYSIS/COMPLETE (06-20-2013 13:12) URINE YELLOW YELLOW complet COLOR 013 ed 13:12 URINE CLEAR CLEAR complet APPEARA 013 ed NCE 13:12 URINE NEGATIV NEG complet GLUCOSE 013 E ed - 13:12 DIPSTIC K URINE NEGATIV NEG complet BILIRUB 013 E ed IN - 13:12 DIPSTIC K URINE NEGATIV NEG complet KETONE 013 E mg/dL ed 13:12 URINE 1.020 1.005-1 complet SPECIFI 013 UNK .030 ed C 13:12 GRAVITY URINE TRACE-I NEG complet BLOOD 013 NTACT ed 13:12 URINE 6.0 UNK 5.0-8.5 complet PH 013 ed 13:12 URINE NEGATIV NEG complet PROTEIN 013 E mg/dL ed - 13:12 DIPSTIC K URINE 06-20-2 0.2 NEG complet UROBILI 013 E.U./dL ed NOGEN - 13:12 DIPSTIC K URINE 06-20-2 NEGATIV NEG complet NITRATE 013 E ed - 13:12 DIPSTIC K URINE 06-20-2 NEGATIV NEG complet LEUK 013 E ed ESTERAS 13:12 E URINE 2 OCC 0 complet RBC 013 rbc/hpf ed 13:12 URINE OCC 0-5 complet SQUAMOU 013 #/hpf ed S CELLS 13:12 BASIC METABOLIC PANEL (06-20-2013 12:40) Glucose 133 74-106 complet 013 mg/dL ed Bld-mCn 12:40 c BUN 8 mg/dL 7-18 complet Bld-mCn 013 ed c 12:40 Creat 1.1 0.6-1.0 complet SerPl-m 013 mg/dL ed Cnc 12:40 ESTIMAT 51 50-200 complet ED 013 ML/MIN ed CREATIN 12:40 INE CLEARAN CE GFR 49 59- complet (ESTIMA 013 ML/MIN ed MAIRA) 12:40 Sodium 139 136-145 complet SerPl-s 013 mmoL/L ed Cnc 12:40 Potassi 4.3 3.5-5.1 complet um 013 mmoL/L ed SerPl-s 12:40 Cnc Chlorid 104 98-107 complet e 013 mmoL/L ed SerPl-s 12:40 Cnc CO2 30 21.0-32 complet SerPl-s 013 mmoL/L .0 ed Cnc 12:40 Calcium 8.1 8.5-10. complet 013 mg/dL 1 ed SerPl-m 12:40 Cnc BNP Bld-mCnc (06-20-2013 12:40) BNP 177 0-100 complet Bld-n 013 pg/mL ed c 12:40 D Dimer PPP (06-20-2013 12:40) D Dimer 650 0-400 High complet PPP 013 ng/mL alert ed 12:40 ARTERIAL BLOOD GAS (06-20-2013 12:15) ARTERIA 7.11 7.35-7. Low complet L PH 013 MMOL/L 45 alert ed 12:15 ARTERIA 82.1 35.0-45 complet L PCO2 013 MMHG .0 ed 12:15 ARTERIA 69.2 80-100 complet L PO2 013 MMHG ed 12:15 ARTERIA 25.5 22.0-26 complet L HCO3 013 MMOL/L .0 ed 12:15 ARTERIA 28.0 23-27 complet L TCO2 013 MMOL/L ed 12:15 Base -4.0 -2.4-+2 complet excess 013 MMOL/L .3 ed BldA-sC 12:15 nc ARTERIA 89.6 % 90-100 complet L O2 013 ed SAT 12:15 OXYGEN 32% complet 013 NASAL ed 12:15 CANNULA Arteria PATIENT complet l 013 UNABLE ed patency 12:15 Wrist a SOURCE RIGHT complet 013 BRACHIA ed 12:15 L Procedures Procedure DOS Code Location Performer Comment CONTINUOU 96.71 W. 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 Adam ENDOTRACH Meet EAL TUBE Encounters Encounter Start End Date Code Location Performer Type Date Inpatient IMP Andrea Dsouza ([place]) 3 13:04 3 16:40 [facility]
--- OUTSIDE RECORDS SUMMARY | 2017-08-08 16:41 | External Medical Summary Rpt | CCD ---
Author Author , ELSA HUNTER Address Unknown Phone [email or web address] Care Team Providers Care Network Security Consultant Name Role Phone Matteo Louis MD, Unavailable Unavailable Matteo Dsouza MD, Unavailable Unavailable Lucero Dsouza MD Purpose Continuity of Care Document - 06-19-2013 through 2016 Problems Code Diagnosis DOS Provider Status 518.81 Respiratory Andrea failure [facility] [id number] Cholecystit [facility] Allergies, Adverse Reactions, Alerts Type Drug Allergy Adverse Reaction to Substance Substance Reaction Severity Baclofen C-HLPXJB-TCVG/THROAT Unknown Promethazine I-HIVES Unknown Acetaminophen V-BEFVYB-CJAW/THROAT Unknown Amantadine I-HIVES Unknown Simvastatin P-ZZSJLM-VPBL/THROAT Unknown Medications Na ND Rx Da Fi Fi Am Da Di Ph RX Ph St me C No te ll ll ou ys ag ar # ys at rm s nt no ma ic us Or Da si cy ia de te s n re d FU 00 09 0 No RO 40 -1 SE 96 0- Lo ND 10 20 ng DE 20 13 er 4 40 Ac ti MG ve /4 ML AL LO 51 09 0 No PE 07 -1 RA 90 0- Lo ND 69 20 ng DE 02 13 er [...] RO 07 -0 SE 90 9- Lo ND 07 20 ng DE 22 13 er [...] RO 07 -0 SE 90 7- Lo ND 07 20 ng DE 22 13 er [...] TI ON DI 63 09 1 No CA 32 -0 IV 30 6- Lo AN [...] Andrea Dsouza ([place]) 3 13:04 3 16:40 [facility]
--- OUTSIDE RECORDS SUMMARY | 2017-08-08 16:42 | External Medical Summary Rpt ---
Author Author ELSA Gilmore, [employer] Organization [employer] Address Unknown Phone Unavailable Results Basic metabolic panel in Blood Observa Value Referen Units Interpr Notes Date tion ce etation Range Urea 7 - 18 mg/dL Normal No May 01 nitrogen informati 2016 9:00 [Mass/vol on in AM ume] in source Serum or data Plasma Calcium 8.5 - mg/dL Normal No May 01 [Mass/vol 10.1 informati 2016 9:00 ume] in on in AM Serum or source Plasma data Chloride 98 - 107 mmoL/L Normal No May 01 [Moles/vo informati 2016 9:00 lume] in on in AM Serum or source Plasma data Carbon 21.0 - mmoL/L Normal No May 01 dioxide, 32.0 informati 2016 9:00 total on in AM [Moles/vo source lume] in data Serum or Plasma Creatinin 0.55 - mg/dL High No May 01 e 1.02 informati 2016 9:00 [Mass/vol on in AM ume] in source Serum or data Plasma Estimated 59- ML/MIN Low REFERENCE May 01 RANGE: 2017 9:00 glomerula >60 AM r ML/MIN/1. filtratio 73 SQUARE n rate METERSIf (GF this patient is -A merican, then multiply theresult by 1.210. 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 Observa Value Referen Units Interpr Notes Date tion ce etation Range VENOUS 82 75 - 80 % High No Apr 6 O2 SAT informa 2017 CATH tion in 12:23 LAB source PM data Comprehensive metabolic 2000 panel in Serum or Plasma Observa Value Referen Units Interpr Notes Date tion ce etation Range Albumin/G 1.1 - 1.8 No Low No Apr 17 lobulin informati informati 2016 6:09 [Mass on in on in AM ratio] in source source Serum or data data Plasma Albumin 3.4 - 5.0 gm/dL Low No Apr 4 [Mass/vol informati 2016 6:09 ume] in on in AM Serum or source Plasma data Alkaline 46 - 116 U/L Normal No Apr 17 phosphata informati 2016 6:09 se on in AM [Enzymati source c data activity/ volume] in Serum or Plasma Bilirubin 0.2 - 1.0 mg/dL Normal No Apr 17 .total informati 2016 6:09 [Mass/vol on in AM ume] in source Serum or data Plasma Urea 7 - 18 mg/dL No No Apr 17 nitrogen informati informati 2016 6:09 [Mass/vol on in on in AM ume] in source source Serum or data data Plasma Calcium 8.5 - mg/dL Normal No Apr 17 [Mass/vol 10.1 informati 2017 6:09 ume] in on in AM Serum or source Plasma data Chloride 98 - 107 mmoL/L Normal No Apr 17 [Moles/vo informati 2016 6:09 lume] in on in AM Serum or source Plasma data Carbon 21.0 - mmoL/L Normal No Apr 17 dioxide, 32.0 informati 2017 6:09 total on in AM [Moles/vo source lume] in data Serum or Plasma Creatinin 0.55 - mg/dL High No Apr 17 e 1.02 informati 2017 6:09 [Mass/vol on in AM ume] in source Serum or data Plasma Creatinin 50 - 200 ML/MIN Low No Apr 17 e renal informati 2017 6:09 clearance on in AM source predicted data by Cockcroft -Gault formula Estimated 59- ML/MIN Low REFERENCE Apr 17 RANGE: 2017 6:09 glomerula >60 AM r ML/MIN/1. filtratio 73 SQUARE n rate METERSIf (GF this patient is -A merican, then multiply theresult by 1.210. Globulin 1.3 - 3.2 gm/dL High No Apr 17 [Mass/vol informati 2016 6:09 ume] in on in AM Serum source data Glucose 74 - 106 mg/dL Normal No Apr 17 [Mass/vol informati 2016 6:09 ume] in on in AM Serum or source Plasma data Potassium 3.5 - 5.1 mmoL/L Normal No Apr 172016 6:09 [Moles/vo on in AM lume] in source Serum or data Plasma Sodium 136 - 145 mmoL/L Normal No Apr 17 [Moles/vo informati 2016 6:09 lume] in on in AM Serum or source Plasma data Aspartate 15 - 37 U/L Normal No Apr 17 informati 2016 6:09 aminotran on in AM sferase source [Enzymati data c activity/ volume] in Serum or Plasma Alanine 12 - 78 U/L Normal No Apr 17 aminotran informati 2016 6:09 sferase on in AM [Enzymati source c data activity/ volume] in Serum or Plasma Protein 6.4 - 8.2 gm/dL Normal No Apr 17 [Mass/vol informati 2016 6:09 ume] in on in AM Serum or source Plasma data CBC W Auto Differential panel in Blood Observa Value Referen Units Interpr Notes Date tion ce etation Range Basophils 0 - 0.2 K/MM3 Normal No Apr 172016 6:09 [#/volume on in AM ] in source Blood by data Automated count Basophils 0.1 - 2.0 % Normal No Apr 17 informati 2016 6:09 leukocyte on in AM s in source Blood by data Automated count Eosinophi 0.0 - 0.4 K/mm3 Normal No Apr 17 ls informati 2016 6:09 [#/volume on in AM ] in source Blood by data Automated count Eosinophi 0.1 - % Normal No Apr 17 ls/100 12.0 informati 2016 6:09 leukocyte on in AM s in source Blood by data Automated count Granulocy 1.8 - 7.8 K/mm3 Normal No Apr 17 virgilio informati 2016 6:09 [#/volume on in AM ] in source Blood by data Automated count Granulocy 37.0 - % Normal No Apr 17 virgilio100 80.0 informati 2017 6:09 leukocyte on in AM s in source Blood by data Automated count Hematocri 37.0 - % Low No Apr 17 t [Volume 47.0 informati 2016 6:09 on in AM Fraction] source of Blood data Hemoglobi 12.2 - g/dL Low No Apr 17 n 16.2 informati 2017 6:09 [Mass/vol on in AM ume] in source Blood data Lymphocyt 0.7 - 4.5 K/mm3 Normal No Apr 17 es informati 2016 6:09 [#/volume on in AM ] in source Unspecifi data ed specimen by Automated count Lymphocyt 10 - 50.0 % Normal No Apr 17 es informati 2017 6:09 [#/volume on in AM ] in source Unspecifi data ed specimen by Automated count Erythrocy 27 - 31.2 pg Normal No Apr 17 te mean informati 2016 6:09 corpuscul on in AM ar source hemoglobi data n [Entitic mass] Erythrocy 31.8 - g/dl Normal No Apr 17 te mean 35.4 informati 2016 6:09 corpuscul on in AM ar source hemoglobi data n concentra tion [Mass/vol ume] by Automated count Erythrocy 82.2 - fl Normal No Apr 17 te mean 97.8 informati 2017 6:09 corpuscul on in AM ar volume source [Entitic data volume] by Automated count Monocytes 0.1 - 1.0 K/mm3 Normal No Apr 17 informati 2017 6:09 [#/volume on in AM ] in source Blood by data Automated count Monocytes 1.7 - 9.3 % Normal No Apr 17 /100 informati 2017 6:09 leukocyte on in AM s in source Blood by data Automated count Platelet 7.4 - fl High No Apr 17 mean 10.4 informati 2017 6:09 volume on in AM [Entitic source volume] data in Blood by Automated count Platelets 142 - 424 K/mm3 Low No Apr 17 informati 2017 6:09 [#/volume on in AM ] in source Blood data Erythrocy 4.2 - 5.4 M/mm3 Low No Apr 17 virgilio informati 2017 6:09 [#/volume on in AM ] in source Amniotic data fluid Erythrocy 11.5 - % Normal No Apr 17 te 17.5 informati 2017 6:09 distribut on in AM ion width source [Entitic data volume] by Automated count Leukocyte 4.8 - K/MM3 Normal No Apr 4 s 10.8 informati 2016 6:09 [#/volume on in AM ] in source Blood data Mycoplasma pneumoniae IgM Ab [Presence] in Serum by Immunoassay Observa Value Referen Units Interpr Notes Date ti ce etation Range Mycopla NONREAC NONREAC No No No Apr 3 sma TIVE TIVE informa informa informa 2017 pneumon tion in tion in tion in 8:25 AM iae IgM source source source Ab data data data [Presen ce] in Serum by Immunoa ssay Thyrotropin [Units/volume] in Serum or Plasma Observa Value Referen Units Interpr Notes Date ti ce etation Range 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 - Apr 15 I.cardiac 0.06 0.49 IS 2016 AN 10:05 PM [Mass/vol INDETERMI ume] in NANT Serum or ZONEAnd Plasma can be consisten t with the following diseases: Trauma Criticall y ill patients Clarke >30% TBSACHF Hypothyro idism Amyloidos isHyperte nsion Myocardit is SepsisHyp otension Rhabdomyo lysis Vital exhaust.P ostop surgery Pulmonary embolism CVARenal failure Acute neurologi roberto disease Atrial fib. Troponin I.cardiac [Mass/volume] in Serum or Plasma Observa Value Referen Units Interpr Notes ce etation Range Troponin 0.00 - ng/mL High 0. - Apr 15 I.cardiac 0.06 0.49 IS 2016 7:20 AN PM [Mass/vol INDETERMI ume] in NANT Serum or ZONEAnd Plasma can be consisten t with the following diseases: Trauma Criticall y ill patients Clarke >30% TBSACHF Hypothyro idism Amyloidos isHyperte nsion Myocardit is SepsisHyp otension Rhabdomyo lysis Vital exhaust.P ostop surgery Pulmonary embolism CVARenal failure Acute neurologi roberto disease Atrial fib. Streptococcus pyogenes Ag [Presence] in Unspecified specimen Observa Value Referen Units Interpr Notes Date tion ce etation Range Strepto NOT NOTDETE No No LOT # Apr 2 coccus DETECTE CTED informa informa N/A EXP 2017 pyogene D tion in tion in DATE 1:40 PM s Ag source source N/A [Presen data data ce] in Unspeci fied specime n Influenza virus A+B Ag [Presence] in Unspecified specimen Observa Value Referen Units Interpr Notes Date tion ce etation Range Influen NOT NOT No No No Apr 2 za DETECTE DETECTD informa informa informa 2017 virus A D tion in tion in tion in 1:34 PM Ag source source source [Presen data data data ce] in Unspeci fied specime n INFLUEN NOT NOT No No LOT # Apr 2 ZA B DETECTE DETECTD informa informa @[id number] ANTIGEN D tion in tion in 5 EXP 1:34 PM source source DATE data data @20190 9-30 Natriutietic peptide B [Mass/volume] in Serum or Plasma Observa Value Referen Units Interpr Notes Date tion ce etation Range Natriutie 0 - 100 pg/mL High No Apr 15 tic informati 2016 1:15 peptide B on in PM source [Mass/vol data ume] in Serum or Plasma Troponin I.cardiac [Mass/volume] in Serum or Plasma Observa Value Referen Units Interpr Notes Date tion ce etation Range Troponin 0.00 - ng/mL Normal No Apr 15 I.cardiac 0.06 informati 2016 1:15 on in PM [Mass/vol source ume] in data Serum or Plasma Comprehensive metabolic 2000 panel in Serum or Plasma Observa Value Referen Units Interpr Notes Date tion ce etation Range Albumin/G 1.1 - 1.8 No Low No Apr 15 lobulin informati informati 2016 1:15 [Mass on in on in PM ratio] in source source Serum or data data Plasma Albumin 3.4 - 5.0 gm/dL Low No Apr 15 [Mass/vol informati 2016 1:15 ume] in on in PM Serum or source Plasma data Alkaline 46 - 116 U/L Normal No Apr 15 phosphata informati 2016 1:15 se on in PM [Enzymati source c data activity/ volume] in Serum or Plasma Bilirubin 0.2 - 1.0 mg/dL Normal No Apr 15 .total informati 2016 1:15 [Mass/vol on in PM ume] in source Serum or data Plasma Urea 7 - 18 mg/dL Normal No Apr 15 nitrogen informati 2016 1:15 [Mass/vol on in PM ume] in source Serum or data Plasma Calcium 8.5 - mg/dL Normal No Apr 15 [Mass/vol 10.1 informati 2016 1:15 ume] in on in PM Serum or source Plasma data Chloride 98 - 107 mmoL/L Normal No Apr 15 [Moles/vo informati 2016 1:15 lume] in on in PM Serum or source Plasma data Carbon 21.0 - mmoL/L Normal No Apr 15 dioxide, 32.0 informati 2016 1:15 total on in PM [Moles/vo source lume] in data Serum or Plasma Creatinin 0.55 - mg/dL Normal No Apr 15 e 1.02 informati 2016 1:15 [Mass/vol on in PM ume] in source Serum or data Plasma Creatinin 50 - 200 ML/MIN Normal No Apr 15 e renal informati 2016 1:15 clearance on in PM source predicted data by Cockcroft -Gault formula Estimated 59- ML/MIN Low REFERENCE Apr 15 RANGE: 2017 1:15 glomerula >60 PM r ML/MIN/1. filtratio 73 SQUARE n rate METERSIf (GF this patient is -A merican, then multiply theresult by 1.210. Globulin 1.3 - 3.2 gm/dL High No Apr 15 [Mass/vol informati 2016 1:15 ume] in on in PM Serum source data Glucose 74 - 106 mg/dL Normal No Apr 15 [Mass/vol informati 2016 1:15 ume] in on in PM Serum or source Plasma data Potassium 3.5 - 5.1 mmoL/L Normal No Apr 15 informati 2016 1:15 [Moles/vo on in PM lume] in source Serum or data Plasma Sodium 136 - 145 mmoL/L Normal No Apr 15 [Moles/vo informati 2017 1:15 lume] in on in PM Serum or source Plasma data Aspartate 15 - 37 U/L Normal No Apr 15 informati 2016 1:15 aminotran on in PM sferase source [Enzymati data c activity/ volume] in Serum or Plasma Alanine 12 - 78 U/L Normal No Apr 15 aminotran inform2016 1:15 sferase on in PM [Enzymati source c data activity/ volume] in Serum or Plasma Protein 6.4 - 8.2 gm/dL Normal No Apr 15 [Mass/vol informati 2016 1:15 ume] in on in PM Serum or source Plasma data Lactate [Moles/volume] in Blood Observa Value Referen Units Interpr Notes Date tion ce etation Range Lactate 0.4 - 2.0 mmol/L Normal No Apr 15 [Moles/vo informati 2016 1:15 lume] in on in PM Blood source data CBC W Auto Differential panel in Blood Observa Value Referen Units Interpr Notes Date tion ce etation Range Basophils 0 - 0.2 K/MM3 Normal No Apr 15 inform2016 1:15 [#/volume on in PM ] in source Blood by data Automated count Basophils 0.1 - 2.0 % Normal No Apr 15 / informati 2016 1:15 leukocyte on in PM s in source Blood by data Automated count Eosinophi 0.0 - 0.4 K/mm3 Normal No Apr 15 ls ati 2016 1:15 [#/volume on in PM ] in source Blood by data Automated count Eosinophi 0.1 - % Normal No Apr 15 ls/100 12.0 informati 2016 1:15 leukocyte on in PM s in source Blood by data Automated count Granulocy 1.8 - 7.8 K/mm3 Normal No Apr 15 virgilio informati 2016 1:15 [#/volume on in PM ] in source Blood by data Automated count Granulocy 37.0 - % Normal No Apr 15 virgilio/100 80.0 informati 2016 1:15 leukocyte on in PM s in source Blood by data Automated count Hematocri 37.0 - % Low No Apr 15 t [Volume 47.0 informati 2016 1:15 on in PM Fraction] source of Blood data Hemoglobi 12.2 - g/dL Low No Apr 15 n 16.2 informati 2016 1:15 [Mass/vol on in PM ume] in source Blood data Lymphocyt 0.7 - 4.5 K/mm3 Normal No Apr 15 es informati 2016 1:15 [#/volume on in PM ] in source Unspecifi data ed specimen by Automated count Lymphocyt 10 - 50.0 % Normal No Apr 15 es informati 2016 1:15 [#/volume on in PM ] in source Unspecifi data ed specimen by Automated count Erythrocy 27 - 31.2 pg Normal No Apr 15 te mean 2016 1:15 corpuscul on in PM ar source hemoglobi data n [Entitic mass] Erythrocy 31.8 - g/dl Normal No Apr 15 te mean 35.4 inform2016 1:15 corpuscul on in PM ar source hemoglobi data n concentra tion [Mass/vol ume] by Automated count Erythrocy 82.2 - fl Normal No Apr 15 te mean 97.8 informati 2016 1:15 corpuscul on in PM ar volume source [Entitic data volume] by Automated count Monocytes 0.1 - 1.0 K/mm3 Normal No Apr 15 informati 2016 1:15 [#/volume on in PM ] in source Blood by data Automated count Monocytes 1.7 - 9.3 % Normal No Apr 15 /100 informati 2016 1:15 leukocyte on in PM s in source Blood by data Automated count Platelet 7.4 - fl High No Apr 15 mean 10.4 informati 2016 1:15 volume on in PM [Entitic source volume] data in Blood by Automated count Platelets 142 - 424 K/mm3 Low No Apr 15 informati 2016 1:15 [#/volume on in PM ] in source Blood data Erythrocy 4.2 - 5.4 M/mm3 Normal No Apr 15 virgilio informati 2017 1:15 [#/volume on in PM ] in source Amniotic data fluid Erythrocy 11.5 - % Normal No Apr 15 te 17.5 informati 2016 1:15 distribut on in PM ion width source [Entitic data volume] by Automated count Leukocyte 4.8 - K/MM3 Normal No Apr 15 s 10.8 informati 2016 1:15 [#/volume on in PM ] in source Blood data
--- OUTSIDE RECORDS SUMMARY | 2017-08-08 16:42 | External Medical Summary Rpt | CCD ---
Author Author ELSA Address Unknown Phone [email or web address] Purpose Continuity of Care Document - through 2016
--- OUTSIDE RECORDS SUMMARY | 2017-08-08 16:42 | External Medical Summary Rpt ---
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
--- OUTSIDE RECORDS SUMMARY | 2017-08-08 16:42 | External Medical Summary Rpt | CCD ---
Author Author , ELSA HUNTER Address Unknown Phone [email or web address] Immunization Name Date Rout CVX Reac Dose Comm Prov Is Faci e tion ent ider Refu lity Give sed n PCV1 05-0 Intr 133 0.5 Hist D049 No D049 3 5-20 amus mL oric 01 17 cula al r Info rmat ion - Sour ce Unsp ecif ied
--- OUTSIDE RECORDS SUMMARY | 2017-08-08 16:42 | External Medical Summary Rpt | CCD ---
Author Author , ELSA HUNTER Address Unknown Phone [email or web address] Immunization Name Date Rout CVX Reac Dose Comm Prov Is Faci e tion ent ider Refu lity Give sed n PCV1 05-0 Intr 133 0.5 Hist D049 No D049 3 5-20 amus mL oric 01 17 cula al r Info rmat ion - Sour ce Unsp ecif ied
--- OUTSIDE RECORDS SUMMARY | 2017-08-08 16:42 | External Medical Summary Rpt | CCD ---
Author Author ELSA Address Unknown Phone [email or web address] Purpose Continuity of Care Document - through 2016
[2017-08-08 16:56] LABS: LYMPH # 1.4 K/mm3 (0.7-4.5); LYMPH % 32.6 % (10-50.0)
[2017-08-08 17:04] LABS: HEMOGLOBIN 10.6 g/dL (12.2-16.2)
[2017-08-08 17:23] LABS: BUN 11 mg/dL (7-18)
[2017-08-08 17:25] LABS: GFR (ESTIMATED) 54 ML/MIN (59-)
--- NOTE | 2017-08-08 17:42 | RADIOLOGY REPORT PS360 ---
CHEST(2 VIEWS-NOT PORTABLE) HISTORY: Chest pain CHEST/EPIGASTRIC ORDERING PHYSICIAN: Carola Bernard MD PATIENT AGE: 72 years COMPARISON: None available FINDINGS: Normal heart size. Calcified azygous lymph node is present. There is a small hiatal hernia. Lungs are clear bilaterally. No acute bony finding. IMPRESSION: Small hiatal hernia, no acute finding
[2017-08-08 18:01] VITALS: BP 140/74
== END 2017-08-08 18:01 | disposition home or self-care (01) ==
LOC: ER 16:26
PROVIDERS: Emergency Medicine
DX: R07.89 Other chest pain (principal); J45.909 Unspecified asthma, uncomplicated; I10 Essential (primary) hypertension; E03.9 Hypothyroidism, unspecified; R10.13 Epigastric pain; Z88.8 Allergy status to other drugs, medicaments and biological substances

== ENCOUNTER 2017-09-14 08:00 | Outpatient (CLI) | payer MEDICARE, MEDICAID ==
[~2017-09-14 08:00] MED LIST changes: +LISINOPRIL 10MG10 MG PO; +SUCRALFATE 1GM T1 GM NG
[2017-09-14 08:31] VITALS: BP 142/81
[2017-09-14 09:01] VITALS: BP 144/79
[2017-09-14 09:40] VITALS: BP 138/80
== END 2017-09-14 09:45 | disposition home or self-care (01) ==
LOC: COP 08:00
DX: D50.9 Iron deficiency anemia, unspecified (principal)
CPT/HCPCS: J1756

== ENCOUNTER 2017-09-21 08:00 | Outpatient (CLI) | payer MEDICARE, MEDICAID ==
[2017-09-21 08:30] VITALS: BP 158/85
[2017-09-21 09:52] VITALS: BP 166/93
== END 2017-09-21 09:43 | disposition home or self-care (01) ==
LOC: COP 08:00
DX: D50.9 Iron deficiency anemia, unspecified (principal); T45.4X5A Adverse effect of iron and its compounds, initial encounter
CPT/HCPCS: J1756

== ENCOUNTER 2017-09-24 14:22 | Emergency (ER) | payer MEDICARE, MEDICAID ==
[~2017-09-24] VITALS: Ht 167.6 cm; Wt 72.6 kg
--- OUTSIDE RECORDS SUMMARY | 2017-09-24 14:52 | External Medical Summary Rpt | CCD ---
Author Author , ELSA HUNTER Address Unknown Phone [email or web address] Care Team Providers Care Tower Observer Name Role Phone Matteo Louis MD, Unavailable Unavailable Matteo Dsouza MD, Unavailable Unavailable Lucero Dsouza MD Purpose Continuity of Care Document - 06-19-2013 through 2016 Problems Code Diagnosis DOS Provider Status 518.81 Respiratory [place] failure [facility] [id number] Cholecystit Andrea is [facility] L50.9 URTICARIA, UNSPECIFIED P24.01 MECONIUM ASPIRATION WITH RESPIRATORY SYMPTOMS R07.89 OTHER CHEST PAIN R50.9 FEVER, UNSPECIFIED Allergies, Adverse Reactions, Alerts Type Drug Allergy Adverse Reaction to Substance Substance Reaction Severity Baclofen P-NDYEEG-YYTN/THROAT Unknown Promethazine I-HIVES Unknown Acetaminophen E-ZVNVSI-HHXT/THROAT Unknown Amantadine I-HIVES Unknown Simvastatin N-SIVSPP-DTKH/THROAT Unknown Medications Na ND Rx Da Fi Fi Am Da Di Ph RX Ph St me C No te ll ll ou ys ag ar # ys at rm s nt no ma ic us Or Da si cy ia de te s n re d FU 00 09 0 No RO 40 -1 SE 96 0- Lo NE 10 20 ng DE 20 13 er 4 40 Ac ti MG ve /4 ML AL LO 51 09 0 No PE 07 -1 RA 90 0- Lo NE 69 20 ng DE 02 13 er [...] RO 07 -0 SE 90 9- Lo NE 07 20 ng DE 22 13 er [...] RO 07 -0 SE 90 7- Lo NE 07 20 ng DE 22 13 er [...] TI ON DI 63 09 1 No DC 32 -0 IV 30 6- Lo AN [...] Order Detail nces retati t Range on Erythropoetin (09-05-2017 12:41) Erythro = 48.1 2.6-18. complet poetin 017 mIU/mL 5 ed 12:41 Comment: [employer] 2000 Immunochemiluminometr ic assay (ICMA) Comment: Performed at: [facility] Comment: [id number], [place] [id number] Comment: Arranger Assembler: Satish Pacheco PhD, Phone: [phone] CBC w auto diff (09-05-2017 12:41) Blood = 4.2 4.8-10. complet leukocy 017 K/MM3 8 ed virgilio 12:41 count (number /volume ) Automat = 12.5 11.5-17 complet ed 017 % .5 ed erythro 12:41 cyte distrib ution width Red = 3.17 4.2-5.4 complet blood 017 M/mm3 ed cell 12:41 count Blood = 154 142-424 complet platele 017 K/mm3 ed t count 12:41 Automat = 11.5 7.4-10. complet ed 017 fl 4 ed blood 12:41 platele t mean volume jas [place] % = 8.0 % 1.7-9.3 complet 017 ed 12:41 Absolut = 0.3 0.1-1.0 complet e 017 K/mm3 ed monocyt 12:41 e count Automat = 84.3 82.2-97 complet ed 017 fl .8 ed erythro 12:41 cyte mean corpusc ular v Automat = 32.0 31.8-35 complet ed 017 g/dl .4 ed erythro 12:41 cyte mean corpusc ular h Mean = 27.0 27-31.2 complet corpusc 017 pg ed ular 12:41 hemoglo bin (MCH) determ Lymphoc = 29.3 10-50.0 complet yte 017 % ed count, 12:41 blood, automat ed Absolut = 1.2 0.7-4.5 complet e 017 K/mm3 ed lymphoc 12:41 yte count Blood = 8.5 12.2-16 complet hemoglo 017 g/dL .2 ed bin 12:41 measure ment (mass/v olum Blood = 26.8 37.0-47 complet hematoc 017 % .0 ed rit 12:41 (volume fractio n) Granulo = 50.4 37.0-80 complet cyte 017 % .0 ed percent 12:41 age Blood = 2.1 1.8-7.8 complet granulo 017 K/mm3 ed cytes 12:41 automat ed count (numb Automat = 11.7 0.1-12. complet ed 017 % 0 ed blood 12:41 eosinop hils/10 0 leukocy t Automat = 0.5 0.0-0.4 complet ed 017 K/mm3 ed blood 12:41 eosinop hil count Baso % = 0.7 % 0.1-2.0 complet 017 ed 12:41 Automat = 0.0 0-0.2 complet ed 017 K/MM3 ed blood 12:41 basophi l count (count/ vo CBC w auto diff (08-08-2017 16:40) Automat = 0.1 0-0.2 complet ed 017 K/MM3 ed blood 16:40 basophi l count (count/ vo Baso % = 1.1 % 0.1-2.0 complet 017 ed 16:40 Automat = 0.6 0.0-0.4 complet ed 017 K/mm3 ed blood 16:40 eosinop hil count Automat = 13.8 0.1-12. complet ed 017 % 0 ed blood 16:40 eosinop hils/10 0 leukocy t Blood = 1.9 1.8-7.8 complet granulo 017 K/mm3 ed cytes 16:40 automat ed count (numb Granulo = 42.4 37.0-80 complet cyte 017 % .0 ed percent 16:40 age Blood = 31.2 37.0-47 complet hematoc 017 % .0 ed rit 16:40 (volume fractio n) Blood = 10.6 12.2-16 complet hemoglo 017 g/dL .2 ed bin 16:40 measure ment (mass/v olum Absolut = 1.4 0.7-4.5 complet e 017 K/mm3 ed lymphoc 16:40 yte count Lymphoc = 32.6 10-50.0 complet yte 017 % ed count, 16:40 blood, automat ed Mean = 28.5 27-31.2 complet corpusc 017 pg ed ular 16:40 hemoglo bin (MCH) determ Automat = 34.0 31.8-35 complet ed 017 g/dl .4 ed erythro 16:40 cyte mean corpusc ular h Automat = 83.8 82.2-97 complet ed 017 fl .8 ed erythro 16:40 cyte mean corpusc ular v Absolut = 0.4 0.1-1.0 complet e 017 K/mm3 ed monocyt 16:40 e count [place] % = 10.0 1.7-9.3 complet 017 % ed 16:40 Blood = 4.4 4.8-10. complet leukocy 017 K/MM3 8 ed virgilio 16:40 count (number /volume ) Automat = 12.5 11.5-17 complet ed 017 % .5 ed erythro 16:40 cyte distrib ution width Red = 3.73 4.2-5.4 complet blood 017 M/mm3 ed cell 16:40 count Blood = 112 142-424 complet platele 017 K/mm3 ed t count 16:40 Automat = 10.6 7.4-10. complet ed 017 fl 4 ed blood 16:40 platele t mean volume jas Comprehensive metabolic panel (08-08-2017 16:40) Protein = 6.6 6.4-8.2 complet total 017 gm/dL ed ser/kevin 16:40 s ALT = 15 12-78 complet (SGPT) 017 U/L ed ser/kevin 16:40 s Serum = 26 15-37 complet or 017 U/L ed plasma 16:40 asparta te aminotr ansfera Serum = 141 136-145 complet sodium 017 mmoL/L ed measure 16:40 ment Serum = 3.9 3.5-5.1 complet potassi 017 mmoL/L ed um 16:40 measure ment Serum = 100 74-106 complet or 017 mg/dL ed plasma 16:40 glucose measure ment (mas Serum = 3.4 1.3-3.2 complet globuli 017 gm/dL ed n 16:40 measure ment (mass/v olume) Estimat = 54 59- complet ed 017 ML/MIN ed glomeru 16:40 lar filtrat ion rate (GF Comment: REFERENCE RANGE: >60 ML/MIN/1.73 SQUARE METERS Comment: If this patient is -[place], then multiply the Comment: result by 1.210. Estimat = 58 50-200 complet ion of 017 ML/MIN ed creatin 16:40 ine renal clearan ce Serum = 1.0 0.55-1. complet or 017 mg/dL 02 ed plasma 16:40 creatin ine measure ment ( Carbon = 27 21.0-32 complet dioxide 017 mmoL/L .0 ed 16:40 measure ment Serum 10-25-2 = 105 98-107 complet or 017 mmoL/L ed plasma 16:40 chlorid e measure ment (mo Serum 08-08-2 = 9.0 8.5-10. complet or 017 mg/dL 1 ed plasma 16:40 calcium measure ment (mas Serum 25-2 = 11 7-18 complet or 017 mg/dL ed plasma 16:40 urea nitroge n measure men Serum 25-2 = 0.6 0.2-1.0 complet or 017 mg/dL ed plasma 16:40 total bilirub in measure m Serum 08-08-2 = 94 46-116 complet or 017 U/L ed plasma 16:40 alkalin e phospha tase jas Serum 08-08-2 = 3.2 3.4-5.0 complet or 017 gm/dL ed plasma 16:40 albumin measure ment (mas Serum 08-08-2 = 0.9 1.1-1.8 complet or 017 ed plasma 16:40 albumin /globul in mass ra Cardiac enzymes (08-08-2017 16:40) Serum 08-08-2 < 0.02 0.00-0. complet or 017 ng/mL 06 ed plasma 16:40 troponi n i.cardi ac measu Serum = 80 26-192 complet or 017 U/L ed plasma 16:40 creatin e kinase measure m Serum < 0.5 0.0-3.6 complet or 017 ng/mL ed plasma 16:40 creatin e kinase MB measu Serum 2 = 0.6 0-4.0 complet or 017 U/L ed plasma 16:40 creatin e kinase MB (CK-M COMPREHENSIVE METABOLIC PANEL (06-24-2013 06:40) Glucose 86 [...] Bld 013 M/mm3 ed Auto 06:40 Hgb 11.1 12.2-16 complet Bld-mCn 013 g/dL .2 ed c 06:40 Hct Fr 33.1 % 37.0-47 complet Bld 013 .0 ed 06:40 MCV RBC 09-10-2 84.2 fl 82.2-97 complet 013 .8 ed 06:40 MCH RBC 10-2 28.2 pg 27-31.2 complet Qn 013 ed Auto 06:40 MEAN -10-2 33.5 31.8-35 complet CORPUSC 013 g/dl .4 ed ULAR 06:40 HGB CONC RDW RBC -10-2 15.6 % 11.5-17 complet Auto 013 .5 ed 06:40 Platele -10-2 119 142-424 complet t Bld 013 K/mm3 ed Ql 06:40 Manual MEAN 2 10.8 fl 7.4-10. complet PLATELE 013 4 ed T 06:40 VOLUME Granulo -10-2 51.5 % 37.0-80 complet cytes 013 .0 ed Fr Bld 06:40 Auto LYMPH % 09-10-2 30.9 % 10-50.0 complet 013 ed 06:40 [...] Auto BASIC METABOLIC PANEL (06-23-2013 04:10) Glucose 06-23-2 82 74-106 complet 013 mg/dL ed Bld-mCn [...] 013 K/mm3 ed Ql 04:10 Manual MEAN 10.2 fl 7.4-10. complet PLATELE 013 4 ed T 04:10 VOLUME Granulo 09-2 60.5 % 37.0-80 complet cytes 013 .0 ed Fr Bld 04:10 Auto LYMPH % 09-2 24.4 % 10-50.0 complet 013 ed 04:10 Monocyt 09-2 6.7 % 1.7-9.3 complet es Fr 013 ed Bld 04:10 Auto Eosinop -09-2 8.0 % 0.1-12. complet hil Fr 013 0 ed Bld 04:10 Auto Basophi 09-2 0.4 % 0.1-2.0 complet ls Fr 013 ed Bld 04:10 Auto Granulo 09-2 2.3 1.8-7.8 complet cytes # 013 K/mm3 ed Bld 04:10 Auto Lymphoc 09-2 0.9 0.7-4.5 complet ytes Fr 013 K/mm3 ed Bld 04:10 Auto Monocyt 09-2 0.3 0.1-1.0 complet es # 013 K/mm3 ed Bld 04:10 Auto Eosinop -09-2 0.3 0.0-0.4 complet hil # 013 K/mm3 ed Bld 04:10 Auto Basophi 09-2 0.0 0-0.2 complet ls # 013 K/MM3 [...] 013 mg/dL ed SerPl-m 06:05 Cnc AST 06-22- 516 U/L 15-37 High complet SerPl-c 013 [...] complet 013 .8 ed 06:05 MCH RBC 09-08-2 25.9 pg 27-31.2 complet Qn 013 ed [...] Fr 013 ed Bld 06:05 Auto Granulo 06-22-2 3.4 1.8-7.8 complet cytes # 013 K/mm3 ed Bld 06:05 Auto Lymphoc 2 0.8 0.7-4.5 complet ytes Fr 013 K/mm3 ed Bld 06:05 Auto Monocyt 06-22-2 0.2 0.1-1.0 complet es # 013 K/mm3 ed Bld 06:05 Auto ARTERIAL BLOOD GAS (06-21-2013 07:15) ARTERIA 06-21- 7.44 7.35-7. complet L PH 013 MMOL/L 45 ed 07:15 ARTERIA 06-21- 36.0 35.0-45 complet L PCO2 013 MMHG .0 ed 07:15 ARTERIA 108.0 80-100 complet L PO2 013 MMHG ed 07:15 ARTERIA 06-21-2 24.0 22.0-26 complet L HCO3 013 MMOL/L .0 ed 07:15 ARTERIA 06-21-2 16.2 23-27 complet L TCO2 013 MMOL/L ed 07:15 Base -0.2 -2.4-+2 complet excess 013 MMOL/L .3 ed BldA-sC 07:15 nc ARTERIA 98 % 90-100 complet L O2 013 ed SAT 07:15 TIDAL 600 UNK complet VOLUME 013 ed 07:15 OXYGEN 50 UNK complet 013 ed 07:15 VENT 4 UNK complet RATE 013 ed 07:15 PEEP 6 UNK complet 013 ed 07:15 PRESSUR [...] complet Qn 013 ed Auto 05:10 MEAN -07-2 33.9 31.8-35 complet CORPUSC 013 g/dl .4 ed ULAR 05:10 HGB CONC RDW RBC 07-2 15.2 % 11.5-17 complet Auto 013 .5 ed 05:10 Platele -07-2 144 142-424 complet t Bld 013 K/mm3 ed Ql 05:10 Manual MEAN 07-2 11.3 fl 7.4-10. complet PLATELE 013 4 [...] PCO2 013 MMHG .0 ed 13:51 ARTERIA 69.3 80-100 complet L PO2 013 MMHG [...] 5.0-8.5 complet PH 013 ed 13:12 URINE 06-20- NEGATIV NEG complet PROTEIN 013 E mg/dL ed - 13:12 DIPSTIC K URINE 06-20-2 0.2 NEG complet UROBILI 013 E.U./dL ed NOGEN - 13:12 DIPSTIC K URINE 06-20-2 NEGATIV NEG complet NITRATE 013 E ed - 13:12 DIPSTIC K URINE NEGATIV NEG complet LEUK 013 E ed ESTERAS 13:12 E URINE OCC 0 complet RBC 013 rbc/hpf ed [...] Bld-mCnc (06-20-2013 12:40) BNP 177 0-100 complet Bld-mCn 013 pg/mL ed c 12:40 D Dimer [...] Andrea Dsouza ([place]) 3 13:04 3 16:40 [facility]
--- OUTSIDE RECORDS SUMMARY | 2017-09-24 14:52 | External Medical Summary Rpt | CCD ---
Author Author , ELSA HUNTER Address Unknown Phone [email or web address] Care Team Providers Care Industrial Editor Name Role Phone Matteo Louis MD, Unavailable Unavailable Matteo Dsouza MD, Unavailable Unavailable Lucero Dsouza MD Purpose Continuity of Care Document - 06-19-2013 through 2016 Problems Code Diagnosis DOS Provider Status 518.81 Respiratory [place] failure [facility] [id number] Cholecystit Andrea is [facility] L50.9 URTICARIA, UNSPECIFIED P24.01 MECONIUM ASPIRATION WITH RESPIRATORY SYMPTOMS R07.89 OTHER CHEST PAIN R50.9 FEVER, UNSPECIFIED Allergies, Adverse Reactions, Alerts Type Drug Allergy Adverse Reaction to Substance Substance Reaction Severity Baclofen K-VRYWWZ-KUEZ/THROAT Unknown Promethazine I-HIVES Unknown Acetaminophen S-IGDQTN-WEFV/THROAT Unknown Amantadine I-HIVES Unknown Simvastatin L-IIFFFI-GNPK/THROAT Unknown Medications Na ND Rx Da Fi Fi Am Da Di Ph RX Ph St me C No te ll ll ou ys ag ar # ys at rm s nt no ma ic us Or Da si cy ia de te s n re d FU 00 09 0 No RO 40 -1 SE 96 0- Lo [place] 10 20 ng DE 20 13 er 4 40 Ac ti MG ve /4 ML AL LO 51 09 0 No PE 07 -1 RA 90 0- Lo [place] 69 20 ng DE 02 13 er [...] RO 07 -0 SE 90 9- Lo [place] 07 20 ng DE 22 13 er [...] RO 07 -0 SE 90 7- Lo [place] 07 20 ng DE 22 13 er [...] poetin 017 mIU/mL 5 ed 12:41 Comment: [employer] 2000 Immunochemiluminometr ic assay (ICMA) Comment: Performed at: [facility] Comment: [id number], [place] [id number] Comment: Timber Rider: Satish Pacheco PhD, Phone: [phone] CBC w auto diff (09-05-2017 12:41) Blood [...] blood 12:41 platele t mean volume jas Kay % = 8.0 % 1.7-9.3 complet 017 [...] 017 K/mm3 ed monocyt 16:40 e count Kay % = 10.0 1.7-9.3 complet 017 % [...] SQUARE METERS Comment: If this patient is -[place], then multiply the Comment: result by 1.210. [...] Andrea Dsouza ([place]) 3 13:04 3 16:40 [facility]
--- OUTSIDE RECORDS SUMMARY | 2017-09-24 14:53 | External Medical Summary Rpt | CCD ---
Author Author ELSA Address Unknown Phone [email or web address] Purpose Continuity of Care Document - through 2016
--- OUTSIDE RECORDS SUMMARY | 2017-09-24 14:53 | External Medical Summary Rpt | CCD ---
Author Author ELSA Address Unknown Phone [email or web address] Purpose Continuity of Care Document - through 2016
--- OUTSIDE RECORDS SUMMARY | 2017-09-24 14:53 | External Medical Summary Rpt | CCD ---
Author Author , ELSA HUNTER Address Unknown Phone [email or web address] Immunization Name Date Rout CVX Reac Dose Comm Prov Is Faci e tion ent ider Refu lity Give sed n PCV1 05-0 Intr 133 0.5 Hist D049 No D049 3 5-20 amus mL oric 01 17 cula al r Info rmat ion - Sour ce Unsp ecif ied
--- OUTSIDE RECORDS SUMMARY | 2017-09-24 14:53 | External Medical Summary Rpt | CCD ---
Author Author , ELSA HUNTER Address Unknown Phone [email or web address] Immunization Name Date Rout CVX Reac Dose Comm Prov Is Faci e tion ent ider Refu lity Give sed n PCV1 05-0 Intr 133 0.5 Hist D049 No D049 3 5-20 amus mL oric 01 17 cula al r Info rmat ion - Sour ce Unsp ecif ied
--- NOTE | 2017-09-24 15:48 | Urgent Treatment Center Report ---
History of Present Issue Date/Time Seen by Provider 09/24/17 5296 Visit Reason Pt arrived:Wheelchair Presenting Problem:BODY ACHES BEGAN SUNDAY AND A SHARP PAIN DOWN LEFT LEG AND WEAKNESS Location if Accident: Onset of symptoms date/time:/ or onset unknown for:MEDICAL HX UNKNOWN Have you (or family members/close friends) recently traveled outside the [place]? N If Yes, where/when: Have you had exposure to infectious disease within the past month? TB? Other? Specify: Here w/ brother in law c/o bodyaches and weakness. Started Sunday and has only continued to get worse. Mininal appetite and fluid intake but brother in law reports that part is baseline, "she never eats or drinks much". Hx of pneumonia twice this year, both times requiring hospital admissions. Pt reporting "this feels 10 times worse". Reports a faint cough x 2-3 days. PMHx CHF. Denies any new edema or SOA. Pain throughout right thigh radiating to hip and up into left lung. PCP Jodi Hernandes but reports she has been seeing Dr. Loera for iron transfusions. Most recent one Sunday. Thinks they told her then she might have to have a blood transfusion but would need to finish the iron transfusions first. Pt isn't sure on exactly why she is anemic. Typically independent at home and cooks family's meals but had to have help getting dressed today. Source patient, family Exam Limitations no limitations ALLERGIES Coded Allergies: amantadine (I-HIVES 06/15/16) baclofen (G-ZJINHO-GHQP/THROAT 06/15/16) carvedilol (COUGH 06/15/16) promethazine (I-HIVES CAN TAKE SHOT NOT TABLET 03/02/17) rosuvastatin (I-ITCHING 06/15/16) simvastatin (A-GDSBIR-BJHL/THROAT 06/15/16) Home Medications Reported Medications Gabapentin (Gabapentin 600MG) 300 MG PO BID Tramadol Hcl (Ultram 50MG) 50 MG PO BID PRN PAIN Amitriptyline Hcl (Amitriptyline) 50 MG PO QHS #90 Sucralfate (Sucralfate 1GM Tablet) 50 MG NG QHS LISINOPRIL (Lisinopril) 10 MG PO DAILY History Medical History General CAD? No Angina: No [place]: No Hypertension? Yes Hyperlipidemia? No CHF? Yes DVT? No PE? No COPD? No Asthma? Yes Anemia? Yes GERD? No Gastric ulcers? No GI Bleed? No Hernia? No Thyroid Problems? No Hypothyroidism? Yes CVA? Yes Seizures? Yes Diabetes? No Insulin Dependent: No Insulin Pump: No Home FSBS? No Renal Insuffiency? No UTI? No Stones? No BPH? No GB Disease: Yes Nephritic Syndrome? No Asplenia? No Hepatitis? No Sickle Cell Disease? No Arthritis? Yes Migraines? No Cataracts? No Glaucoma? No MRSA? No HIV? No TB? No Anxiety? No Depression? No Cancer? No More? No Immunization HX DT/Tetanus 1-4 YRS Flu 2015- Flu Season Pneumonia Received In Past Surgical Hx Previous Surgery?Y LOLITA,BSO BLADDER TACH CVA (2006) CYCTOCELE, ENTEROCELE KNEE SURGERY COLONOSCOPY GALLBLADDER [id number] BACK SURGERY Family History Family HX Diabetes No CAD Yes Hypertension Yes Hyperlipidemia No Cancer Yes TB No Social History Smoking Hx Smoker: Never Smoker Tobacco: No Packs/day N/A Alcohol Alcohol: No Review of Systems All Other Systems Reviewed and Negative Constitutional see HPI, denies chills, denies fever Eyes denies drainage, denies vision change ENT denies: ear pain, nose discharge, nose congestion, throat pain. Respiratory see HPI Cardiovascular denies chest pain, denies palpitations Gastrointestinal see HPI, denies abdominal pain, denies nausea, denies vomiting Genitourinary denies: dysuria, frequency, hesitancy. Musculoskeletal see HPI Skin change in color (pale, baseline "lately"), denies lesions, denies rash Psychiatric/Neurological see HPI, denies headache Physical Exam Vital Signs Vital Signs Date Time Temp Pulse Resp B/P Pulse O2 O2 Flow FiO2 Ox Delivery Rate 09/24 1519 98.0 90 18 149/99 95 09/24 1441 98.0 90 18 149/99 95 General Appearance pale, weak, tearful while standing "due to aching", being assisted to restroom by brother in law, nearly fell when he let go Ear, Nose, Throat normal ENT inspection Respiratory Status No: respiratory distress, productive cough, non productive cough. Lung Sounds anterior: lungs clear. posterior: lungs clear. bilateral: lungs clear. Cardiovascular regular rate/rhythm, no murmur, 1-2+ pitting edema BLE Neurologic alert, oriented x 3 Skin normal color, warm/dry, pallor Medical Decision Making LABS/Meds/Orders Pt receiving controlled substance in ED? No Results/Orders Orders Procedure Date/time Status [facility] FLU A,B 09/24 152 Active Progress [facility] Progress Notes Date 09/24/17 Time 1549 Comment Discussed HPI and exam with pt and brother in law. Aware of my concerns seeing how weak she was ambulating to restroom, nearly falling. Agreeable to transfer to ER for further evaluation. Report called to Oliver SITE WORKER. Aware of new onset weakness, flu negative, unable to urinate for U/A, PNA twice this year and feeling weaker now than then, and NATHANIEL w/ iron transfusion. Room 11 available. Departure Departure Time of Disposition 1555 Disposition Still a Patient Clinical Impression Primary Impression: Weakness Condition STABLE at 1600
--- NOTE | 2017-09-24 15:48 | Urgent Treatment Center Report ---
History of Present Issue Date/Time Seen by Provider 09/24/17 3831 Visit Reason Pt arrived:Wheelchair Presenting Problem:BODY ACHES BEGAN SUNDAY AND A SHARP PAIN DOWN LEFT LEG AND WEAKNESS Location if Accident: Onset of symptoms date/time:/ or onset unknown for:MEDICAL HX UNKNOWN Have you (or family members/close friends) recently traveled outside the [place]? N If Yes, where/when: Have you had exposure to infectious disease within the past month? TB? Other? Specify: Here w/ brother in law c/o bodyaches and weakness. Started Sunday and has only continued to get worse. Mininal appetite and fluid intake but brother in law reports that part is baseline, "she never eats or drinks much". Hx of pneumonia twice this year, both times requiring hospital admissions. Pt reporting "this feels 10 times worse". Reports a faint cough x 2-3 days. PMHx CHF. Denies any new edema or SOA. Pain throughout right thigh radiating to hip and up into left lung. PCP Jodi Hernandes but reports she has been seeing Dr. Loera for iron transfusions. Most recent one Sunday. Thinks they told her then she might have to have a blood transfusion but would need to finish the iron transfusions first. Pt isn't sure on exactly why she is anemic. Typically independent at home and cooks family's meals but had to have help getting dressed today. Source patient, family Exam Limitations no limitations ALLERGIES Coded Allergies: amantadine (I-HIVES 06/15/16) baclofen (K-VSBXVQ-DSQS/THROAT 06/15/16) carvedilol (COUGH 06/15/16) promethazine (I-HIVES CAN TAKE SHOT NOT TABLET 03/02/17) rosuvastatin (I-ITCHING 06/15/16) simvastatin (C-VZDVMD-VJPA/THROAT 06/15/16) Home Medications Reported Medications Gabapentin (Gabapentin 600MG) 300 MG PO BID Tramadol Hcl (Ultram 50MG) 50 MG PO BID PRN PAIN Amitriptyline Hcl (Amitriptyline) 50 MG PO QHS #90 Sucralfate (Sucralfate 1GM Tablet) 50 MG NG QHS LISINOPRIL (Lisinopril) 10 MG PO DAILY History Medical History General CAD? No Angina: No [place]: No Hypertension? Yes Hyperlipidemia? No CHF? Yes DVT? No PE? No COPD? No Asthma? Yes Anemia? Yes GERD? No Gastric ulcers? No GI Bleed? No Hernia? No Thyroid Problems? No Hypothyroidism? Yes CVA? Yes Seizures? Yes Diabetes? No Insulin Dependent: No Insulin Pump: No Home FSBS? No Renal Insuffiency? No UTI? No Stones? No BPH? No GB Disease: Yes Nephritic Syndrome? No Asplenia? No Hepatitis? No Sickle Cell Disease? No Arthritis? Yes Migraines? No Cataracts? No Glaucoma? No MRSA? No HIV? No TB? No Anxiety? No Depression? No Cancer? No More? No Immunization HX DT/Tetanus 1-4 YRS Flu 2015- Flu Season Pneumonia Received In Past Surgical Hx Previous Surgery?Y LOLITA,BSO BLADDER TACH CVA (2006) CYCTOCELE, ENTEROCELE KNEE SURGERY COLONOSCOPY GALLBLADDER [id number] BACK SURGERY Family History Family HX Diabetes No CAD Yes Hypertension Yes Hyperlipidemia No Cancer Yes TB No Social History Smoking Hx Smoker: Never Smoker Tobacco: No Packs/day N/A Alcohol Alcohol: No Review of Systems All Other Systems Reviewed and Negative Constitutional see HPI, denies chills, denies fever Eyes denies drainage, denies vision change ENT denies: ear pain, nose discharge, nose congestion, throat pain. Respiratory see HPI Cardiovascular denies chest pain, denies palpitations Gastrointestinal see HPI, denies abdominal pain, denies nausea, denies vomiting Genitourinary denies: dysuria, frequency, hesitancy. Musculoskeletal see HPI Skin change in color (pale, baseline "lately"), denies lesions, denies rash Psychiatric/Neurological see HPI, denies headache Physical Exam Vital Signs Vital Signs Date Time Temp Pulse Resp B/P Pulse O2 O2 Flow FiO2 Ox Delivery Rate 09/24 1519 98.0 90 18 149/99 95 09/24 1441 98.0 90 18 149/99 95 General Appearance pale, weak, tearful while standing "due to aching", being assisted to restroom by brother in law, nearly fell when he let go Ear, Nose, Throat normal ENT inspection Respiratory Status No: respiratory distress, productive cough, non productive cough. Lung Sounds anterior: lungs clear. posterior: lungs clear. bilateral: lungs clear. Cardiovascular regular rate/rhythm, no murmur, 1-2+ pitting edema BLE Neurologic alert, oriented x 3 Skin normal color, warm/dry, pallor Medical Decision Making LABS/Meds/Orders Pt receiving controlled substance in ED? No Results/Orders Orders Procedure Date/time Status [facility] FLU A,B 09/24 152 Active Progress [facility] Progress Notes Date 09/24/17 Time 1549 Comment Discussed HPI and exam with pt and brother in law. Aware of my concerns seeing how weak she was ambulating to restroom, nearly falling. Agreeable to transfer to ER for further evaluation. Report called to Oliver LATEX FASHIONS DESIGNER. Aware of new onset weakness, flu negative, unable to urinate for U/A, PNA twice this year and feeling weaker now than then, and NATHANIEL w/ iron transfusion. Room 11 available. Departure Departure Time of Disposition 1555 Disposition Still a Patient Clinical Impression Primary Impression: Weakness Condition STABLE at 1600
--- NOTE | 2017-09-24 16:24 | Emergency Room Report ---
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 N Clinical Suspician of Infection? N Mental Status: 1 - Regular (Normal Baseline) Sepsis Risk:Low Sepsis Risk Have you (or family members/close friends) recently traveled outside the [place]? N If Yes, where/when: Have you had exposure to infectious disease within the past month? TB? Other? Specify: Source patient, RN notes reviewed, family, RN/MD Exam Limitations no limitations Comment This is a 72-year-old female sent to the emergency room from [facility] with body aches and low back pain. Patient is a very poor historian. Her low back pain radiating down the LEFT lower extremity, with patient having a limping gait due to this pain. Patient has any fall, or recent trauma. Patient also denies any urinary retention or urinary incontinence. ALLERGIES Coded Allergies: amantadine (I-HIVES 06/15/16) baclofen (P-[id number]-ODEK/THROAT 06/15/16) carvedilol (COUGH 06/15/16) promethazine (I-HIVES CAN TAKE SHOT NOT TABLET 03/02/17) rosuvastatin (I-ITCHING 06/15/16) simvastatin (L-FYJFKH-IBLW/THROAT 06/15/16) Home Medications Reported Medications Gabapentin (Gabapentin 600MG) 300 MG PO BID Tramadol Hcl (Ultram 50MG) 50 MG PO BID PRN PAIN Amitriptyline Hcl (Amitriptyline) 50 MG PO QHS #90 Sucralfate (Sucralfate 1GM Tablet) 50 MG NG QHS LISINOPRIL (Lisinopril) 10 MG PO DAILY History Medical History General CAD? No Angina: No [place]: No Hypertension? Yes Hyperlipidemia? No CHF? Yes DVT? No PE? No COPD? No Asthma? Yes Anemia? Yes GERD? No Gastric ulcers? No GI Bleed? No Hernia? No Thyroid Problems? No Hypothyroidism? Yes CVA? Yes Seizures? Yes Diabetes? No Insulin Dependent: No Insulin Pump: No Home FSBS? No Renal Insuffiency? No End Stage Renal Disease? No UTI? No Stones? No BPH? No GB Disease: Yes Nephritic Syndrome? No Asplenia? No Hepatitis? No Sickle Cell Disease? No Arthritis? Yes Migraines? No Cataracts? No Glaucoma? No MRSA? No HIV? No TB? No Anxiety? No Depression? No Cancer? No More? No Immunization Hx DT/Tetanus 1-4 YRS Flu 2016-17FSN Pneumonia Received In Past Surgical Hx Previous Surgery?Y LOLITA,BSO BLADDER TACH CVA (2006) CYCTOCELE, ENTEROCELE KNEE SURGERY COLONOSCOPY GALLBLADDER [id number] BACK SURGERY Family History Family Hx Diabetes No CAD Yes Hypertension Yes Hyperlipidemia No Cancer Yes TB No Social History Smoking Hx Smoker: Never Smoker Tobacco: No Packs/day N/A Alcohol Alcohol: No Review of Systems All Other Systems Reviewed and Negative Musculoskeletal back pain, muscle pain (muscle aches) Psychiatric/Neurological weakness (generalized weakness) Physical Exam Vital Signs Vital Signs Date Time Temp Pulse Resp B/P Pulse O2 O2 Flow FiO2 Ox Delivery Rate 09/24 1844 98.0 86 20 162/90 96 09/24 1753 84 20 168/75 94 09/24 1751 20 09/24 1607 99.0 84 18 160/79 94 09/24 1519 98.0 90 18 149/99 95 09/24 1441 98.0 90 18 149/99 95 General Appearance normal appearance, WD/WN, moderate distress Ear, Nose, Throat hearing grossly normal, pharyngeal erythema, boggy nasal mucosa, yellowish nasal discharge Respiratory Status Yes: trachea midline, chest symmetrical, non tender chest. No: respiratory distress. Lung Sounds bilateral: normal breath sounds, lungs clear. 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 Yes Emeka was queried for this patient? No Reason not queried - hospital network issues Risks/benefits of using a controlled substance for treatment were discussed w/pt by me Comment 1814-patient is reevaluated after receiving the IM pain shot, appears medically stable, clinically improving. Advised patient results obtained, need to follow- up with Dr. Marte regarding her sciatica, and her PCP regarding her anemia. Patient sent home with pain medications. Results/Orders Laboratory Tests 09/24/17 1625: Sodium 136, Potassium 4.0, Chloride 104, Carbon Dioxide 26, BUN 8, Creatinine 1.1 H, Estimated Creat Clear 52, Estimated GFR (MDRD) 49 L, Glucose 95, Calcium 8.6, Total Bilirubin 0.5, AST 25, ALT 14, Alkaline Phosphatase 96, Creatine Kinase 62, CK-MB (CK-2) Rel Index 0.8, CK and CKMB Interp < 0.5, Troponin I < 0.02, Total Protein 6.4, Albumin 3.2 L, Globulin 3.2, Albumin/ Globulin Ratio 1.0 L, WBC 5.7, RBC 3.15 L, Hgb 8.3 L, Hct 26.3 L, MCV 83.3, RDW 14.3, Plt Count 129 L, MPV 11.6 H, Gran % 57.3, Gran # 3.3, Lymphocytes % 22.0, Monocytes % 10.6 H, Eosinophils % 9.5, Basophils % 0.6, Lymphocytes # 1.3 , Monocytes # 0.6, Eosinophils # 0.5 H, Basophils # 0.0, PUBS MCHC 31.5 L, MCH 26.2 L 09/24/17 1529: Influenza Type A Ag NOT DETECTED, Influenza Type B Ag NOT DETECTED Current Medication Orders Sig/Son Start time Last Medication Dose Route Stop Time Status Admin Hydromorphone HCl 0.5 MG ONCE ONE 09/24 1845 DCD IV 09/24 1846 Tramadol HCl 1 MARLYN ONCE ONE 09/24 1845 DCD 09/24 PO 09/24 184 1841 Tramadol HCl 0 .STK-MED ONE 09/24 1836 DC PO Hydromorphone HCl 0.5 MG ONCE ONE 09/24 1800 DC 09/24 IV 09/24 1801 1751 Morphine Sulfate 2 MG ONCE ONE 09/24 1800 CAN IV 09/24 1801 Dexamethasone Sodium 0 .STK-MED ONE 09/24 1748 DC Phosphate .ROUTE Methylprednisolone 0 .STK-MED ONE 09/24 1748 DC Sodium Succinate .ROUTE Hydromorphone HCl 0 .STK-MED ONE 09/24 1747 DC .ROUTE Methylprednisolone 125 MG ONCE ONE 09/24 1745 DC 09/24 Sodium Succinate IV 09/24 174 1750 Sodium Chloride 10 ML PRN PRN 09/24 1630 DCD 09/24 IV 09/25 1623 1750 Orders Procedure Date/time Status IV SALINE LOCK 09/24 1623 Active CBC WITH AUTO DIFF 09/24 1623 Complete CARDIAC ENZYMES 09/24 1623 Complete CHEM 12 PROFILE 09/24 1623 Complete UTC FLU A,B 09/24 1529 Complete Departure Departure Time of Disposition 1835 Disposition DC Home or Self Care(routine) Clinical Impression Primary Impression: Anemia Qualifiers: Anemia type: unspecified type Qualified Code: D64.9 - Anemia, unspecified Secondary Impressions: Sciatica Qualifiers: Laterality: left Qualified Code: M54.32 - Sciatica, left side Condition STABLE Referrals Miriam CRUZ,Tashi Marte MD,QUAN Schmitt APRN (Family) Patient Instructions Anemia, DI for Sciatica Additional Instructions Please take the medications prescribed as instructed, contact Dr. Pineda in order to schedule an arrange for a blood transfusion as soon as possible (within the next [address] Joshua Hernandes in [place] regarding your sciatica and back pain. Discharge Counseling Counseled pt/family regarding diagnosis, test results, medications/RX, home care, follow up needs Comment Please take the medications prescribed as instructed, contact Dr. Pineda in order to schedule an arrange for a blood transfusion as soon as possible (within the next 2 days). Prescriptions Current Visit Scripts HYDROCODONE/ACETAMINOPHEN (Lortab 10-325 (generic) Tablet) 1 TAB PO Q6HP PRN pain #10 TAB ED Critical Care Critical Care No at 1721
--- NOTE | 2017-09-24 16:24 | Emergency Room Report ---
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 N Clinical Suspician of Infection? N Mental Status: 1 - Regular (Normal Baseline) Sepsis Risk:Low Sepsis Risk Have you (or family members/close friends) recently traveled outside the [place]? N If Yes, where/when: Have you had exposure to infectious disease within the past month? TB? Other? Specify: Source patient, RN notes reviewed, family, RN/MD Exam Limitations no limitations Comment This is a 72-year-old female sent to the emergency room from [facility] with body aches and low back pain. Patient is a very poor historian. Her low back pain radiating down the LEFT lower extremity, with patient having a limping gait due to this pain. Patient has any fall, or recent trauma. Patient also denies any urinary retention or urinary incontinence. ALLERGIES Coded Allergies: amantadine (I-HIVES 06/15/16) baclofen (J-[id number]-INMN/THROAT 06/15/16) carvedilol (COUGH 06/15/16) promethazine (I-HIVES CAN TAKE SHOT NOT TABLET 03/02/17) rosuvastatin (I-ITCHING 06/15/16) simvastatin (K-SZNHEC-OQJH/THROAT 06/15/16) Home Medications Reported Medications Gabapentin (Gabapentin 600MG) 300 MG PO BID Tramadol Hcl (Ultram 50MG) 50 MG PO BID PRN PAIN Amitriptyline Hcl (Amitriptyline) 50 MG PO QHS #90 Sucralfate (Sucralfate 1GM Tablet) 50 MG NG QHS LISINOPRIL (Lisinopril) 10 MG PO DAILY History Medical History General CAD? No Angina: No [place]: No Hypertension? Yes Hyperlipidemia? No CHF? Yes DVT? No PE? No COPD? No Asthma? Yes Anemia? Yes GERD? No Gastric ulcers? No GI Bleed? No Hernia? No Thyroid Problems? No Hypothyroidism? Yes CVA? Yes Seizures? Yes Diabetes? No Insulin Dependent: No Insulin Pump: No Home FSBS? No Renal Insuffiency? No End Stage Renal Disease? No UTI? No Stones? No BPH? No GB Disease: Yes Nephritic Syndrome? No Asplenia? No Hepatitis? No Sickle Cell Disease? No Arthritis? Yes Migraines? No Cataracts? No Glaucoma? No MRSA? No HIV? No TB? No Anxiety? No Depression? No Cancer? No More? No Immunization Hx DT/Tetanus 1-4 YRS Flu 2016-17FSN Pneumonia Received In Past Surgical Hx Previous Surgery?Y LOLITA,BSO BLADDER TACH CVA (2006) CYCTOCELE, ENTEROCELE KNEE SURGERY COLONOSCOPY GALLBLADDER [id number] BACK SURGERY Family History Family Hx Diabetes No CAD Yes Hypertension Yes Hyperlipidemia No Cancer Yes TB No Social History Smoking Hx Smoker: Never Smoker Tobacco: No Packs/day N/A Alcohol Alcohol: No Review of Systems All Other Systems Reviewed and Negative Musculoskeletal back pain, muscle pain (muscle aches) Psychiatric/Neurological weakness (generalized weakness) Physical Exam Vital Signs Vital Signs Date Time Temp Pulse Resp B/P Pulse O2 O2 Flow FiO2 Ox Delivery Rate 09/24 1844 98.0 86 20 162/90 96 09/24 1753 84 20 168/75 94 09/24 1751 20 09/24 1607 99.0 84 18 160/79 94 09/24 1519 98.0 90 18 149/99 95 09/24 1441 98.0 90 18 149/99 95 General Appearance normal appearance, WD/WN, moderate distress Ear, Nose, Throat hearing grossly normal, pharyngeal erythema, boggy nasal mucosa, yellowish nasal discharge Respiratory Status Yes: trachea midline, chest symmetrical, non tender chest. No: respiratory distress. Lung Sounds bilateral: normal breath sounds, lungs clear. 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 Yes Emeka was queried for this patient? No Reason not queried - hospital network issues Risks/benefits of using a controlled substance for treatment were discussed w/pt by me Comment 1814-patient is reevaluated after receiving the IM pain shot, appears medically stable, clinically improving. Advised patient results obtained, need to follow- up with Dr. Marte regarding her sciatica, and her PCP regarding her anemia. Patient sent home with pain medications. Results/Orders Laboratory Tests 09/24/17 1625: Sodium 136, Potassium 4.0, Chloride 104, Carbon Dioxide 26, BUN 8, Creatinine 1.1 H, Estimated Creat Clear 52, Estimated GFR (MDRD) 49 L, Glucose 95, Calcium 8.6, Total Bilirubin 0.5, AST 25, ALT 14, Alkaline Phosphatase 96, Creatine Kinase 62, CK-MB (CK-2) Rel Index 0.8, CK and CKMB Interp < 0.5, Troponin I < 0.02, Total Protein 6.4, Albumin 3.2 L, Globulin 3.2, Albumin/ Globulin Ratio 1.0 L, WBC 5.7, RBC 3.15 L, Hgb 8.3 L, Hct 26.3 L, MCV 83.3, RDW 14.3, Plt Count 129 L, MPV 11.6 H, Gran % 57.3, Gran # 3.3, Lymphocytes % 22.0, Monocytes % 10.6 H, Eosinophils % 9.5, Basophils % 0.6, Lymphocytes # 1.3 , Monocytes # 0.6, Eosinophils # 0.5 H, Basophils # 0.0, PUBS MCHC 31.5 L, MCH 26.2 L 09/24/17 1529: Influenza Type A Ag NOT DETECTED, Influenza Type B Ag NOT DETECTED Current Medication Orders Sig/Son Start time Last Medication Dose Route Stop Time Status Admin Hydromorphone HCl 0.5 MG ONCE ONE 09/24 1845 DCD IV 09/24 1846 Tramadol HCl 1 MARLYN ONCE ONE 09/24 1845 DCD 09/24 PO 09/24 184 1841 Tramadol HCl 0 .STK-MED ONE 09/24 1836 DC PO Hydromorphone HCl 0.5 MG ONCE ONE 09/24 1800 DC 09/24 IV 09/24 1801 1751 Morphine Sulfate 2 MG ONCE ONE 09/24 1800 CAN IV 09/24 1801 Dexamethasone Sodium 0 .STK-MED ONE 09/24 1748 DC Phosphate .ROUTE Methylprednisolone 0 .STK-MED ONE 09/24 1748 DC Sodium Succinate .ROUTE Hydromorphone HCl 0 .STK-MED ONE 09/24 1747 DC .ROUTE Methylprednisolone 125 MG ONCE ONE 09/24 1745 DC 09/24 Sodium Succinate IV 09/24 174 1750 Sodium Chloride 10 ML PRN PRN 09/24 1630 DCD 09/24 IV 09/25 1623 1750 Orders Procedure Date/time Status IV SALINE LOCK 09/24 1623 Active CBC WITH AUTO DIFF 09/24 1623 Complete CARDIAC ENZYMES 09/24 1623 Complete CHEM 12 PROFILE 09/24 1623 Complete UTC FLU A,B 09/24 1529 Complete Departure Departure Time of Disposition 1835 Disposition DC Home or Self Care(routine) Clinical Impression Primary Impression: Anemia Qualifiers: Anemia type: unspecified type Qualified Code: D64.9 - Anemia, unspecified Secondary Impressions: Sciatica Qualifiers: Laterality: left Qualified Code: M54.32 - Sciatica, left side Condition STABLE Referrals Miriam CRUZ,Tashi Marte MD,QUAN Schmitt APRN (Family) Patient Instructions Anemia, DI for Sciatica Additional Instructions Please take the medications prescribed as instructed, contact Dr. Pineda in order to schedule an arrange for a blood transfusion as soon as possible (within the next [address] Joshua Hernandes in [place] regarding your sciatica and back pain. Discharge Counseling Counseled pt/family regarding diagnosis, test results, medications/RX, home care, follow up needs Comment Please take the medications prescribed as instructed, contact Dr. Pineda in order to schedule an arrange for a blood transfusion as soon as possible (within the next 2 days). Prescriptions Current Visit Scripts HYDROCODONE/ACETAMINOPHEN (Lortab 10-325 (generic) Tablet) 1 TAB PO Q6HP PRN pain #10 TAB ED Critical Care Critical Care No at 1721
[2017-09-24 17:04] LABS: HEMOGLOBIN 8.3 g/dL (12.2-16.2); LYMPH # 1.3 K/mm3 (0.7-4.5)
[2017-09-24 17:25] LABS: BUN 8 mg/dL (7-18)
[2017-09-24 17:28] LABS: GFR (ESTIMATED) 49 ML/MIN (59-)
[2017-09-24] MEDS ORDERED: HYDROCODONE/ACE1 TA5 PO (18:37)
[2017-09-24 18:44] VITALS: BP 162/90
== END 2017-09-24 18:44 | disposition home or self-care (01) ==
LOC: UTC 14:22 → ER 14:22 → UTC 14:46 → ER 14:46
PROVIDERS: Emergency Medicine
DX: D64.9 Anemia, unspecified (principal); M54.32 Sciatica, left side; Z86.73 Personal history of transient ischemic attack (TIA), and cerebral infarction without residual deficits; I10 Essential (primary) hypertension; J45.909 Unspecified asthma, uncomplicated; Z79.899 Other long term (current) drug therapy; Z88.8 Allergy status to other drugs, medicaments and biological substances

== ENCOUNTER 2017-09-28 08:00 | Outpatient (CLI) | payer MEDICARE, MEDICAID ==
[~2017-09-28 08:00] MED LIST changes: +HYDROCODONE/ACE1 TA5 PO
[2017-09-28 08:55] VITALS: BP 179/84
[2017-09-28 08:57] VITALS: BP 155/89
[2017-09-28 09:39] VITALS: BP 165/80
[2017-09-28 10:00] VITALS: BP 159/84
== END 2017-09-28 10:05 | disposition home or self-care (01) ==
LOC: COP 08:00
DX: D50.9 Iron deficiency anemia, unspecified (principal); T45.4X5A Adverse effect of iron and its compounds, initial encounter
CPT/HCPCS: J1756

== ENCOUNTER 2017-10-02 06:39 | Day surgery (SDC) | payer MEDICARE, MEDICAID ==
[~2017-10-02] VITALS: Ht 162.6 cm; Wt 72.6 kg
--- NOTE | 2017-10-02 07:52 | Operative Note ---
Endoscopy Report Date: 10/02/17 Preoperative diagnosis: Iron deficiency anemia Procedure Type of procedure: Esophagogastroduodenoscopy with biopsies Indications: Patient is a 72-year-old white female. I had previously performed colonoscopy. She was sent to the office recently for upper endoscopy to evaluate iron deficiency anemia. She has been sent to see Dr. Pineda and has had iron transfusions. Denies any evidence of clinical blood loss. Consent was obtained and patient was taken to same-day surgery procedure room. She was positioned in a lateral decubitus position. Adequate intravenous sedation was achieved with anesthesia titration of propofol. Endoscope was inserted via the oropharynx and advanced through the esophagus. There was some tortuosity to the esophagus but otherwise unremarkable. Stomach was cannulated and insufflated. She had a rather large sliding hiatal hernia. There is some mild nonerosive gastritis. Pylorus was traversed and duodenal bulb and duodenal sweep were unremarkable. Gastric antral mucosal biopsy was obtained for CLOtest for H. pylori. A couple of gastric biopsies were obtained for histopathologic analysis. There may have been one small nonbleeding erosions in the mid body of the stomach. Endoscope was withdrawn. Findings 1. Hiatal Hernia 2. Gastritis Follow-Up Follow-Up: No clear source of potential upper gastrointestinal blood loss. Do recommend continuation a proton pump inhibitors. Treat H. pylori if positive. at [id number]
[2017-10-02 09:10] VITALS: BP 167/80
== END 2017-10-02 08:23 | disposition home or self-care (01) ==
LOC: SDC 06:39
PROVIDERS: Surgery
PROC: 0DB78ZX Excision of Stomach, Pylorus, Via Natural or Artificial Opening Endoscopic, Diagnostic (ICD-10-PCS; 2017-10-02)
PROC: 0DB68ZX Excision of Stomach, Via Natural or Artificial Opening Endoscopic, Diagnostic (ICD-10-PCS; principal; 2017-10-02 07:30)
DX: K29.70 Gastritis, unspecified, without bleeding (principal); K44.9 Diaphragmatic hernia without obstruction or gangrene; D64.9 Anemia, unspecified